=== PATIENT | male | born 1940 | race Caucasian/White ===

== ENCOUNTER 2017-03-20 08:43 | Inpatient (IN) | payer MEDICARE ==
[~2017-03-20] VITALS: Ht 170.2 cm; Wt 43.1 kg
[~2017-03-20 08:43] MED LIST: ADVAIR HFA115 MCG/21 INH; ALBUTEROL SUL5 MG/M1 IH; ALBUTEROL2.5 MG/31 INH; ALLERGY RELIEF10 M5 PO; ASPIR 8181 MG PO; ATORVASTATIN CA40 MG PO; AZITHROMYCIN250 MG PO; B-1100 MG PO; B12INJ IM; BROVANA15 MCG/2 M INH; CARAFATE 1 GM TA1 G1 PO; CEFUROXIME250 MG PO; CIPROFLOXACIN500 M1 PO; COLACE100 MG PO; DOXYCYCLINE 10100 M2 PO; DUONEB 2.5-0.5 M3 ML INH; FEOSOL325 M1 PO; FLOMAX0.4 MG PO; FOLIC ACID1 MG PO; HYDROCODONE-AP1 EAC6 PO; IBUPROFEN 400400 M2 PO; IBUPROFEN 600600 M1 PO; LEVAQUIN 500 M500 M2 PO; LEVAQUIN 750 M750 MG PO; LIPITOR40 MG PO; LOPRESSOR50 MG PO; MAPAP500 M1 PO; MELATONIN1 MG; MELATONIN1 MG PO; MIRALAX17 GM PO; MUCINEX TA600 MG/TA2 PO; MULTIVITAMINS1 EAC7 PO; NEURONTIN 300300 M1 PO; NICOTINE TRANSD21 M1; NYSTATIN 1100000 U/M SW&SWALLOW; PERCOCET PO; PREDNISONE 10 M10 M1 PO; PREDNISONE 10 M10 MG PO; PREDNISONE 20 M20 MG PO; PROMETHAZINE/C118 ML PO; PROSCAR 5MG TABL5 MG PO; PROTONIX40 M1 PO; PULMICORT0.5 MG/22 INH; REMERON15 MG PO; ROBITUSSIN DM118 ML PO; SINGULAIR 10 MG10 M1 PO; SPIRIVA INH; STIOLTO RESPIMAT4 GM IH; SYMBICORT160 MCG/4. INH; TESSALON PERLE100 MG PO; TRINATE TABLET1 TAB PO; UNICOMPLEX M TA1 TA1 PO; VENTOLIN HFA 1818 GM INH; VITAMIN B-1100 M1 PO; VITAMIN B-12500 MCG PO; VITAMIN D1000 UNI1 PO; WELLBUTRIN SR150 MG PO; ZOFRAN ODT4 MG PO; levofloxacin PO
[2017-03-20 08:57] VITALS: BP 143/78
[2017-03-20 09:03] LABS: HEMATOCRIT 34.1 % (42.0-52.0); HEMOGLOBIN 10.3 gm/dL (14.0-18.0); MCH 22.6 pg (26.0-34.0); MCHC 30.3 g/dL (28.0-37.0); MCV 74.6 fL (80.0-100.0); MPV 7.8 fl. (7.2-11.1); NUCLEATED RBCS 0 /100WBC; PLATELET COUNT* 290 thou/uL (150-400); RBC 4.57 mil/uL (4.50-6.00); RDW-CV 17.8 % (10.5-14.5); WBC 10.1 thou/uL (4.0-11.0)
[2017-03-20 09:05] LABS: ABSOLUTE BASOPHILS 0.1 thou/uL (0.0-0.2); ABSOLUTE EOSINOPHILS 0.2 thou/uL (0.0-0.7); ABSOLUTE LYMPHOCYTES 1.7 thou/uL (0.8-5.3); ABSOLUTE MONOCYTES 1.2 thou/uL (0.0-1.2); EOSINOPHILS 1.8 %; LYMPHOCYTES 16.9 %; MONOCYTES 11.5 %; POLYS 68.8 %
[2017-03-20] MEDS ORDERED: ASPIR 8181 MG PO (09:05)
[2017-03-20] MEDS ORDERED: CETIRIZINE HCL5 MG PO (09:05)
[2017-03-20] MEDS ORDERED: PROSCAR 5MG TABL5 MG PO (09:06)
[2017-03-20] MEDS ORDERED: NEURONTIN 300300 M1 PO (09:07)
[2017-03-20] MEDS ORDERED: ACETAMINOPHEN-1 EAC1 PO (09:09)
[2017-03-20] MEDS ORDERED: TESSALON PERLE100 MG PO (09:10)
[2017-03-20] MEDS ORDERED: VENTOLIN HFA 1818 GM INH (09:12)
[2017-03-20] MEDS ORDERED: ONDANSETRON HCL4 M2 PO ×2 (09:13→16:39)
[2017-03-20] MEDS ORDERED: PERCOCET PO (09:13)
[2017-03-20 09:16] LABS: ANION GAP 11 mmol/L (7-16); APTT 32.1 Seconds (25.0-31.3); BUN 32 mg/dL (7-18); CALCIUM 8.7 mg/dL (8.5-10.1); CHLORIDE 106 mmol/L (98-107); CO2 26 mmol/L (21-32); CREATININE 1.8 mg/dL (0.6-1.3); GLUCOSE 126 mg/dL (70-99); INR 1.1; POTASSIUM 4.1 mmol/L (3.5-5.1); PROTIME 10.6 Seconds (9.20-11.50); SODIUM 143 mmol/L (136-145)
[2017-03-20 09:27] LABS: ALKALINE PHOSPHATASE 61 U/L (46-116); LIPASE 49 U/L (73-393); MAGNESIUM 2.2 mg/dL (1.8-2.4); NT-PRO BRAIN NAT PEPTIDE 1195 pg/mL (<300); SGOT 14 U/L (15-37); SGPT 12 U/L (30-65); TOTAL BILIRUBIN 0.3 mg/dL (<0.1-1.0); TROPONIN-I LEVEL <0.06 ng/mL (<0.06)
[2017-03-20 09:40] LABS: INFLUENZA A ANTIGEN None Detected (None Detect); INFLUENZA B ANTIGEN None Detected (None Detect)
[2017-03-20 10:00] LABS: HYPOCHROMASIA 1+; PLATELET ESTIMATE ADEQUATE; POLYCHROMASIA 1+
[2017-03-20 10:01] LABS: ANISOCYTOSIS 1+; POIKILOCYTOSIS 1+
[2017-03-20 14:44] VITALS: BP 128/63
[2017-03-20 15:29] VITALS: BP 124/70
--- NOTE | 2017-03-20 15:48 | NUR ---
PATIENT ADMITTED TO ROOM 315 AT 1500 FROM ER. PATIENT STAND BY ASSIST TO BED FROM CART. ASSESSMENT COMPLETED. VITALS CHARTED. O2 IN PLACE AT 2L/NC, O2 SAT 98%. SALINE LOCK NOTED TO RIGHT FOREARM. SKIN INTACT. DENIES ANY PAIN. ORIENTED TO ROOM AND ENVIRONMENT. CALL LIGHT WITHIN REACH. WILL CONTINUE WITH PLAN OF CARE.
[2017-03-20] MEDS ORDERED: MAPAP500 MG PO (16:37)
[2017-03-20] MEDS ORDERED: FLOMAX0.4 MG PO (16:37)
[2017-03-20] MEDS ORDERED: VOLTAREN GEL 1100 G2 TOP (16:37)
[2017-03-20] MEDS ORDERED: COLACE100 MG PO (16:37)
--- NOTE | 2017-03-20 16:39 | EKG ---
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: [place] : 1940 Requested By: Balta Morales Order Number: [id number] MD: Michael Rebolledo Measurements Intervals [place] Rate: 103 P: 83 DE: 157 QRS: -71 QRSD: 156 T: 106 QT: 388 QTc: 508 Interpretive Statements Sinus tachycardia Left Bundle Branch Block Compared to ECG 11/22/2016 19:47:50 changes noted Electronically Signed On 03-20-2017 16:39:39 ADMINISTRATIVE TECHNICIAN by Michael Rebolledo [email or web address] <ELECTRONICALLY SIGNED> By: Michael Rebolledo MD, [facility] 03/20/17 1639 0 0 Michael Rebolledo MD, [facility] /EPI
--- NOTE | 2017-03-20 18:46 | NUR ---
PATIENT HAS BEEN A/O X 4 SINCE ADMIT. CONTINUES ON O2 AT 2L/NC. DENIES ANY PAIN. UP WITH STAND BY ASSIST. SALINE LOCK PATENT. VOIDING PER URINAL. CALL LIGHT WITHIN REACH. WILL CONTINUE WITH PLAN OF CARE.
[2017-03-21 00:16] VITALS: BP 130/58
[2017-03-21 04:42] LABS: HEMATOCRIT 28.3 % (42.0-52.0); HEMOGLOBIN 8.7 gm/dL (14.0-18.0); MCH 22.9 pg (26.0-34.0); MCHC 30.5 g/dL (28.0-37.0); MCV 74.9 fL (80.0-100.0); MPV 8.3 fl. (7.2-11.1); RBC 3.78 mil/uL (4.50-6.00); WBC 4.8 thou/uL (4.0-11.0)
[2017-03-21 04:54] LABS: CALCIUM 8.3 mg/dL (8.5-10.1); CREATININE 1.6 mg/dL (0.6-1.3); MAGNESIUM 2.2 mg/dL (1.8-2.4); POTASSIUM 4.8 mmol/L (3.5-5.1)
--- NOTE | 2017-03-21 05:53 | NUR ---
PT AWAKE ON AND OFF OVERNIGHT. RECEIVED TESSALON PERLS FOR COUGH WITH GOOD RESULT. RECEIVING PO PAIN MED FOR LEG CRAMPING AND DISCOMFORT WITH GOOD RESULT. RT TX GIVEN ORDERED. RFA SL, SOLUMEDROL GIVEN ORDERED. O2 2L NC, PT REMOVES AT TIMES, BUBBLER ADDED FOR COMFORT. LUNGS DIM WITH FAINT WHEEZES. EPISODE OF CONGESTED CHOKEY COUGHING OVERNIGHT. USING URINAL TO VOID OVERNIGHT. AM LABS DRAWN. ABLE TO USE CALL LITE AND MAKE NEEDS KNOWN. BENADRYL CREAM GIVEN FOR ITCHING SKIN CANCER.
[2017-03-21 08:10] VITALS: BP 115/59
--- NOTE | 2017-03-21 14:20 | NUR ---
SOBIA ASSBRITTANIEMENT: VISITED WITH PT IN ROOM. PT LIVES AT THE [facility] IN [place]. HE DRIVES HIS ELECTRIC SCOOTER TO THE [facility] WHICH IS ONE PARKING LOT AWAY FROM HIS APARTMENT. PT HAS A WALKER AND WC AVAILABLE FOR HIS USE. HIS FRIEND TAKES HIM TO APPOINTMENTS. [facility]
[2017-03-21 16:00] VITALS: BP 135/56
--- NOTE | 2017-03-21 19:36 | NUR ---
PATIENT HAS BEEN A/O X 4 THIS SHIFT. PATIENT MEDICATED FOR PAIN X 1 WITH PARTIAL EFFECT. PATIENT WITH NAUSEA THIS AFTERNOON, RELIEVED WITH ZOFRAN. IV ANTIBIOTICS INFUSED ORDERED. CONTINUES ON IV STEROIDS. PATIENT WEARING O2 AT 2L/NC INTERMITTENTLY. ROOM AIR SAT AT 95% WHEN NOT WEARING O2. PATIENT'S APPETITE DECREASED TODAY, STARTED ON ORAL MEGACE. BOOST GIVEN SUPPLEMENTS PER PATIENT REQUEST. PATIENT VOIDING PER URINAL. HOURLY ROUNDING COMPLETED. CALL LIGHT WITHIN REACH. WILL CONTINUE WITH PLAN OF CARE.
[2017-03-22] VITALS: BP 114/70
--- NOTE | 2017-03-22 05:58 | NUR ---
PATIENT SLEPT MOST OF THE NIGHT. IV REMAINS SALINE LOCKED. PATIENT REMAINS ON OXYGEN AT 2 LITERS PER NASAL CANNULA. PATIENT WAS GIVEN PAIN AND NAUSEA MEDS ONCE WITH GOOD RELIEF. WILL CONTINUE TO MONITOR.
[2017-03-22 09:00] VITALS: BP 112/64
[2017-03-22 16:04] VITALS: BP 104/56
--- NOTE | 2017-03-22 16:07 | NUR ---
PATIENT HAS BEEN SLEEPING MOST OF THE DAY. PRN ZOFRAN GIVEN X 1 THIS SHIFT FOR NAUSEA. SPOKE WITH DR. MCNEIL AND ORDERS FOR GET TOMORROW; PATIENT AWARE. PATIENT TOLERATING PO FLUIDS BUT EATS VERY LITTLE. PATIENT CRACKLED LUNG SOUNDS, DR. MCNEIL ROUNDING AT THAT TIME AND IV LASIX ORDERED. PATIENT IV LEAKING, MULTIPLE ATTEMPTS MADE TO RESTART. KOBI NURSE ARCHITECT MANAGER NOTED AND WILL COME UP TO START. PATIENT VOIDING PER URINAL.
[2017-03-22 20:30] VITALS: BP 115/55
--- NOTE | 2017-03-23 05:08 | NUR ---
ASSUMED CARE OF PT AT 1900 PT ALERT AND ORIENTED X4, VS AND ASSESSMENT STABLE. PT DENIED ANY COMPLAINTS AND SLEPT THROUGH THE NIGHT. WILL MONITOR
[2017-03-23 08:15] VITALS: BP 94/56
[2017-03-23 15:54] VITALS: BP 106/55
--- NOTE | 2017-03-23 16:02 | NUR ---
PATIENT HAS SLEPT OFF AND ON MOST OF SHIFT. PATIENT REFUSES TO SIT IN CHAIR OR GET IN SHOWER, STATES HE IS JUST "TOO WEAK." IV REMAINS SL, ABX INFUSED ORDERED. 02 REMAINS AT 2L. PATIENT REPOSITIONS SELF IN BED. GET THIS AM, NORMAL RESULTS. PATIENT TOLERATING REG DIET TODAY.
[2017-03-24] VITALS: BP 111/52
--- NOTE | 2017-03-24 07:27 | NUR ---
PATIENT SLEPT MOST OF THE NIGHT. IV REMAINS SALINE LOCKED. PATIENT WAS GIVEN PAIN MEDICINE ONCE THIS SHIFT. PATIENT IS POSSIBLY GOING HOME TODAY. WILL CONTINUE TO MONITOR.
[2017-03-24 08:00] VITALS: BP 123/66
--- NOTE | 2017-03-24 09:48 | NUR ---
Pt can dc back to [facility] if medically stable, phone and fax number are the same [phone], call and inform of dc. If HH is ordered, faxed orders to [facility], along with facesheet and H&P f:[phone]
[2017-03-24] MEDS ORDERED: PREDNISONE 10 M10 MG PO (09:54)
[2017-03-24] MEDS ORDERED: LEVAQUIN 250 M250 MG PO (09:55)
[2017-03-24] MEDS ORDERED: ACETAMINOPHEN-1 EAC1 PO (10:09)
[2017-03-24 10:25] VITALS: BP 123/66
--- NOTE | 2017-03-24 10:45 | NUR ---
PT STATES HE CANNOT FIND HIS WALLET. ROOM SEARCHED. LOOKED IN TRASH,LINENS AND IN EVERY ICE SKATING INSTRUCTOR ROOM. WALLET NOT FOUND. CALLED SECURITY-NO WALLET IN LOST AND FOUND OR LOCKED IN SECURITY PER LILA. VISITOR IN ROOM STATES HE IS TALKING TO PHOTONICS ENGINEER AT APT WHO IS LOOKING FOR PT'S PHONE AND WALLET. PHONE IS IN APT BUT NO WALLET FOUND. PT INSISTENT ON LE[facility]ING [facility] WALLET IS NOT YET FOUND. WILL FOLLOWUP WITH PT AFTER DC TO SEE IF WALLET FOUND
--- NOTE | 2017-03-24 11:45 | NUR ---
SPOKE TO NURSE WHO TOOK CARE OF PT YESTERDAY. SHE STATES A PHONE WAS IN THE PT'S ROOM BUT NO WALLET WAS SEEN. PHONE IS CURRENTLY AT PT'S APARTMENT AND HAS BEEN SINCE THIS AM PER HIS APT MECHANICAL MAINTENANCE ENGINEER ENRIQUE.
== END 2017-03-24 11:15 | disposition home or self-care (01) | DRG 871 ==
LOC: M.ERS 08:43 → M.3W 10:31 → M.TBA-ER 10:31 → M.3W 14:56
PROVIDERS: Family Medicine; Internal Medicine; ADMIT Internal Medicine
DX: A41.9 Sepsis, unspecified organism (principal); N17.0 Acute kidney failure with tubular necrosis; E43 Unspecified severe protein-calorie malnutrition; J96.01 Acute respiratory failure with hypoxia; J44.1 Chronic obstructive pulmonary disease with (acute) exacerbation; Z68.1 Body mass index [BMI] 19.9 or less, adult; C80.1 Malignant (primary) neoplasm, unspecified; F17.210 Nicotine dependence, cigarettes, uncomplicated; R65.20 Severe sepsis without septic shock; Z90.49 Acquired absence of other specified parts of digestive tract; Z88.0 Allergy status to penicillin; Z79.82 Long term (current) use of aspirin; Z79.51 Long term (current) use of inhaled steroids; Z79.899 Other long term (current) drug therapy

== ENCOUNTER 2017-04-13 03:17 | Inpatient (IN) | payer MEDICARE ==
[~2017-04-13] VITALS: Ht 170.2 cm; Wt 49.1 kg
[~2017-04-13 03:17] MED LIST changes: +ACETAMINOPHEN-1 EAC1 PO; +CETIRIZINE HCL5 MG PO; +LEVAQUIN 250 M250 MG PO; +MAPAP500 MG PO; +ONDANSETRON HCL4 M2 PO; +VOLTAREN GEL 1100 G2 TOP
[2017-04-13 03:19] VITALS: BP 140/73
[2017-04-13 03:45] LABS: ABSOLUTE BASOPHILS 0.1 thou/uL (0.0-0.2); ABSOLUTE EOSINOPHILS 0.2 thou/uL (0.0-0.7); ABSOLUTE LYMPHOCYTES 2.2 thou/uL (0.8-5.3); ABSOLUTE MONOCYTES 0.9 thou/uL (0.0-1.2); BASOPHILS 0.9 %; EOSINOPHILS 1.6 %; HEMATOCRIT 31.5 % (42.0-52.0); HEMOGLOBIN 9.4 gm/dL (14.0-18.0); LYMPHOCYTES 16.4 %; MCH 21.9 pg (26.0-34.0); MCHC 29.8 g/dL (28.0-37.0); MCV 73.7 fL (80.0-100.0); MONOCYTES 6.9 %; MPV 7.3 fl. (7.2-11.1); NUCLEATED RBCS 0 /100WBC; PLATELET COUNT* 413 thou/uL (150-400); POLYS 74.2 %; RBC 4.28 mil/uL (4.50-6.00); RDW-CV 17.2 % (10.5-14.5); WBC 13.5 thou/uL (4.0-11.0)
[2017-04-13] MEDS ORDERED: ACETAMINOPHEN325 M1 PO (03:57)
[2017-04-13] MEDS ORDERED: SENSI CARE TOP (03:59)
[2017-04-13 04:01] LABS: ANION GAP 9 mmol/L (7-16); BUN 23 mg/dL (7-18); CALCIUM 8.5 mg/dL (8.5-10.1); CHLORIDE 106 mmol/L (98-107); CO2 27 mmol/L (21-32); CREATININE 1.6 mg/dL (0.6-1.3); GLUCOSE 122 mg/dL (70-99); POTASSIUM 5.3 mmol/L (3.5-5.1); SODIUM 142 mmol/L (136-145)
[2017-04-13 04:02] LABS: APTT 29.6 Seconds (25.0-31.3); INR 1.1; PROTIME 10.5 Seconds (9.20-11.50)
[2017-04-13 04:11] LABS: ALBUMIN 3.1 g/dL (3.4-5.0); ALKALINE PHOSPHATASE 71 U/L (46-116); LIPASE 91 U/L (73-393); NT-PRO BRAIN NAT PEPTIDE 2185 pg/mL (<300); SGOT 10 U/L (15-37); SGPT 11 U/L (30-65); TOTAL BILIRUBIN 0.2 mg/dL (<0.1-1.0); TOTAL PROTEIN 6.8 g/dL (6.4-8.2); TROPONIN-I LEVEL <0.06 ng/mL (<0.06)
[2017-04-13 05:17] VITALS: BP 126/60
[2017-04-13 06:11] VITALS: BP 145/59
[2017-04-13 06:20] LABS: ANISOCYTOSIS 2+; HYPOCHROMASIA 1+; MICROCYTES 1+; OVALOCYTES 1+
[2017-04-13 08:00] VITALS: BP 124/54
--- NOTE | 2017-04-13 13:16 | EKG ---
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: [facility] : 1940 Requested By: Parrish Somers Order Number: [id number] MD: James Elder Measurements Intervals [place] Rate: 109 P: 75 AR: 155 QRS: -50 QRSD: 143 T: 117 QT: 383 QTc: 516 Interpretive Statements Sinus tachycardia Nonspecific IVCD with LAD Anterolateral infarct, old Compared to ECG 03/20/2017 09:01:11 Left bundle-branch block no longer present Electronically Signed On 04-13-2017 13:15:56 SHOWCASE TRIMMER by James Elder [email or web address] <ELECTRONICALLY SIGNED> By: James Elder MD, [facility] 04/13/17 1315 0331 0331 James Elder MD, [facility] /EPI
[2017-04-13 16:00] VITALS: BP 108/42
[2017-04-13 20:00] VITALS: BP 125/71
[2017-04-14] VITALS: BP 123/54
[2017-04-14 04:00] VITALS: BP 127/52
[2017-04-14 05:57] LABS: HEMATOCRIT 26.3 % (42.0-52.0); HEMOGLOBIN 7.9 gm/dL (14.0-18.0); MCV 73.1 fL (80.0-100.0); MPV 7.4 fl. (7.2-11.1); NUCLEATED RBCS 0 /100WBC; RDW-CV 17.2 % (10.5-14.5); WBC 6.2 thou/uL (4.0-11.0)
[2017-04-14 06:14] LABS: PLATELET COUNT* 290 thou/uL (150-400)
[2017-04-14 06:22] LABS: CREATININE 1.2 mg/dL (0.6-1.3); MAGNESIUM 1.9 mg/dL (1.8-2.4); PHOSPHORUS* 3.3 mg/dL (2.5-4.9); POTASSIUM 4.3 mmol/L (3.5-5.1)
[2017-04-14 07:42] LABS: ABSOLUTE LYMPHOCYTES 0.6 thou/uL (0.8-5.3); ABSOLUTE MONOCYTES 0.1 thou/uL (0.0-1.2); ABSOLUTE NEUTROPHILS 5.5 thou/uL (1.6-8.1); ATYPICAL LYMPHS 4 %; HYPOCHROMASIA 2+; OVALOCYTES 1+
[2017-04-14 07:43] LABS: PLATELET ESTIMATE ADEQUATE
[2017-04-14 08:00] VITALS: BP 128/62
[2017-04-14 12:21] VITALS: BP 116/44
[2017-04-14 16:04] VITALS: BP 127/47
[2017-04-14 20:00] VITALS: BP 140/55
[2017-04-15] VITALS: BP 116/48
[2017-04-15 04:00] VITALS: BP 134/57
[2017-04-15 05:37] LABS: HEMATOCRIT 25.3 % (42.0-52.0); HEMOGLOBIN 7.5 gm/dL (14.0-18.0); MCH 21.7 pg (26.0-34.0); MCHC 29.8 g/dL (28.0-37.0); MCV 72.8 fL (80.0-100.0); MPV 7.6 fl. (7.2-11.1); RBC 3.48 mil/uL (4.50-6.00); RDW-CV 17.2 % (10.5-14.5); WBC 18.8 thou/uL (4.0-11.0)
[2017-04-15 06:15] LABS: ALBUMIN 2.3 g/dL (3.4-5.0); CALCIUM 8.3 mg/dL (8.5-10.1); CREATININE 1.1 mg/dL (0.6-1.3); POTASSIUM 4.2 mmol/L (3.5-5.1); TOTAL BILIRUBIN 0.2 mg/dL (<0.1-1.0); TOTAL PROTEIN 5.8 g/dL (6.4-8.2)
[2017-04-15 08:00] VITALS: BP 131/62
[2017-04-15 12:12] VITALS: BP 137/60
[2017-04-15 16:16] VITALS: BP 138/64
[2017-04-15 20:00] VITALS: BP 117/57
[2017-04-16] VITALS (8 sets, daily range): BP systolic 103–176; BP diastolic 44–57
[2017-04-16 08:08] LABS: HEMATOCRIT 26.2 % (42.0-52.0); MCH 22.2 pg (26.0-34.0); MCHC 30.6 g/dL (28.0-37.0); MCV 72.6 fL (80.0-100.0); MPV 7.7 fl. (7.2-11.1); RBC 3.61 mil/uL (4.50-6.00); RDW-CV 16.9 % (10.5-14.5); WBC 7.5 thou/uL (4.0-11.0)
[2017-04-16 08:13] LABS: INR 1.1; PROTIME 11.1 Seconds (9.20-11.50)
[2017-04-16 08:16] LABS: CALCIUM 7.7 mg/dL (8.5-10.1); CREATININE 1.3 mg/dL (0.6-1.3); MAGNESIUM 1.8 mg/dL (1.8-2.4); POTASSIUM 4.4 mmol/L (3.5-5.1)
[2017-04-17 03:39] VITALS: BP 124/53
[2017-04-17 04:25] LABS: BE -1.1 mmol/L (-2 to +3); HCO3 23.6 mmol/L (22.0-26.0); PCO2 39.1 mmHg (35.0-45.0); PO2 112.5 mmHg (75.0-100.0); pH 7.399 (7.340-7.450)
[2017-04-17 07:55] VITALS: BP 115/54
--- NOTE | 2017-04-17 08:03 | CON ---
[address] [address] CONSULTATION Name: CELESTE STUART Room: [place] [address] ADM IN M.R.#: [id number] Admission: 04/13/17 Attend Phys: Shayne Arredondo Discharge: Date of : 38 Report #: [id number] THIS REPORT FOR: //name// CC: Deed[address] DATE OF SERVICE: 04/16/2017 CHIEF COMPLAINT: COPD and bilateral pulmonary nodules. HISTORY OF PRESENT ILLNESS: The patient is a 77-year-old male who is a smoker. He is down to about half pack of cigarettes per day. He had been a heavy smoker up until a year ago consuming one pack per day for 60+ years. The patient was admitted to the hospital after presenting to the Emergency Room because of increasing shortness of breath. He was doing relatively well on Sunday, but on the day of admission, he noticed more short windedness, was unable to improve despite using his oxygen therapy and using nebulized aerosol treatments. At the place of his residence, the staff called an ambulance. The patient resides at the [facility]. He has a productive cough. He is not bringing up any blood. He denies fever, chills, chest or abdominal pain. In the past, the patient has elected to undergo evaluation by the medical staff at the [facility]. Unfortunately, he has been unable to get an appointment. He states that he has been trying for the last 3 months, but not been able to secure an appointment time. He had been seen and evaluated at this facility in the past. He was seen back in 10/[address] Mendez at which time similar findings were noted on CAT scan that were present on today's scan. Discussion with the patient at that time was that he was interested in pursuing, but would undertake this at the [place]. PAST MEDICAL HISTORY: Significant for chronic kidney disease, bronchitis, COPD, pulmonary nodules, hypertension, hyperlipidemia and tobacco abuse. ALLERGIES: PENICILLIN. In addition to medical problems, he has a history of coronary artery disease. REVIEW OF SYSTEMS: System review negative other than what is outlined above. SOCIAL HISTORY: He is a smoker as outlined above. His 6 years ago. He has four children, but is not aware of where they are currently living. He has no contact with his children. He lives in an assisted living center with about 11 or 12 [place] [address] CONSULTATION Name: CELESTE STUART Room: [address] IN [facility]#: [id number] Admission: 04/13/17 Attend Phys: Shayne Arredondo Discharge: Date of : 38 Report #: [id number] CURRENT MEDICATIONS: Solu-Medrol, guaifenesin, Levaquin, finasteride, loratadine, aspirin, Protonix, gabapentin, melatonin, montelukast and DuoNeb aerosol treatments. PHYSICAL EXAMINATION: VITAL SIGNS: Blood pressure 125/44, pulse rate 84 and regular, respiratory rate 16 and nonlabored and temperature 98 degrees. GENERAL APPEARANCE: He is awake and alert. He is oriented. HEAD: Atraumatic. EYES: Pupils are round, equal and reactive. No scleral icterus. ORAL CAVITY: Moist. NECK: No adenopathy or JVD. CHEST: Reveals coarse breath sounds and scattered rhonchi. Few end-expiratory wheezes. CARDIOVASCULAR: Regular rhythm. ABDOMEN: Soft. No organomegaly and no tenderness. EXTREMITIES: Negative for edema. No evidence of clubbing. SKIN: He has abnormal looking skin with some hyperemic changes on his upper extremities. Skin surface appears slightly irregular and thick especially on his arms. There is no rash effect. Pulses are equal bilaterally. NEUROLOGIC: Moves all fours. No lateralizing signs. MEDICAL IMAGING STUDIES: Most recent CT exam of the chest is abnormal demonstrating a spiculated mass in the right costophrenic angle since the prior study. It is measuring 3.3 x 1.9 x 1.2 cm in diameter. There is a spiculated mass in the right mid lung, which has been interpreted as being stable when compared to the prior study. Small to moderate bilateral effusions and diffuse emphysematous changes. LABORATORY DATA: Hemoglobin and hematocrit of 8 and 26 with a white count of 7600 and platelet count 278,000. Today, his electrolytes reveal sodium of 141, potassium 4.4, chloride 108, CO2 of 25, BUN of 30, creatinine 1.3 and EGFR 53. ASSESSMENT: 1. Chronic obstructive airways disease with exacerbation. 2. Acute on chronic respiratory failure. 3. Pulmonary masses with development of a new lesion in the right lower lung field. 4. Bilateral effusions. RECOMMENDATION: We will ask Interventional Radiology to assess the patient and see if a CT-guided biopsy would be warranted in this patient. The lesion almost abuts the pleural space. There is adjacent pleural fluid. At the time, fluid could be removed as well to be evaluated for culture, sensitivity and cytologic [address] [address] CONSULTATION Name: CELESTE STUART Renetta Room: [address] IN M.R.#: [id number] Admission: 04/13/17 Attend Phys: Shayne Arredondo Discharge: Date of : 38 Report #: [id number] evaluation. An arterial blood gas will be obtained. Continue with bronchodilator therapy. We will increase his steroid dose at this time as well. <ELECTRONICALLY SIGNED> By: Ronnie Benjamin MD 04/17/17 0803 1751 [id number] Chaparro MD /jassi
[2017-04-17 11:05] VITALS: BP 109/56
[2017-04-17 17:02] VITALS: BP 135/52
[2017-04-17 20:00] VITALS: BP 139/83
[2017-04-18] VITALS: BP 132/53
[2017-04-18 04:00] VITALS: BP 130/52
[2017-04-18 07:52] VITALS: BP 119/44
[2017-04-18] MEDS ORDERED: DUONEB 2.5-0.5 M3 ML INH (10:42)
[2017-04-18] MEDS ORDERED: LEVAQUIN 250 M250 MG PO (10:43)
[2017-04-18] MEDS ORDERED: MIRALAX17 GM PO (10:44)
[2017-04-18] MEDS ORDERED: PREDNISONE 10 M10 MG PO (10:45)
[2017-04-18 12:00] VITALS: BP 132/62
== END 2017-04-18 14:02 | DRG 177 ==
LOC: M.ERS 03:17 → M.TBA-ER 04:42 → M.2W 04:42
PROVIDERS: Emergency Medicine Emergency Medical Services; Family Medicine; Internal Medicine; Internal Medicine Pulmonary Disease; ADMIT Internal Medicine
PROC: 5A09357 Assistance with Respiratory Ventilation, Less than 24 Consecutive Hours, Continuous Positive Airway Pressure (ICD-10-PCS; principal; 2017-04-13)
PROC: 5A09357 Assistance with Respiratory Ventilation, Less than 24 Consecutive Hours, Continuous Positive Airway Pressure (ICD-10-PCS; 2017-04-15)
DX: J15.6 Pneumonia due to other Gram-negative bacteria (principal); J96.21 Acute and chronic respiratory failure with hypoxia; E43 Unspecified severe protein-calorie malnutrition; J44.1 Chronic obstructive pulmonary disease with (acute) exacerbation; J44.0 Chronic obstructive pulmonary disease with (acute) lower respiratory infection; R65.10 Systemic inflammatory response syndrome (SIRS) of non-infectious origin without acute organ dysfunction; Z68.1 Body mass index [BMI] 19.9 or less, adult; G62.9 Polyneuropathy, unspecified; N18.9 Chronic kidney disease, unspecified; E78.5 Hyperlipidemia, unspecified; I12.9 Hypertensive chronic kidney disease with stage 1 through stage 4 chronic kidney disease, or unspecified chronic kidney disease; D64.9 Anemia, unspecified; F10.21 Alcohol dependence, in remission; R91.8 Other nonspecific abnormal finding of lung field; F17.210 Nicotine dependence, cigarettes, uncomplicated; I25.2 Old myocardial infarction; Z90.49 Acquired absence of other specified parts of digestive tract; Z85.828 Personal history of other malignant neoplasm of skin; Z79.82 Long term (current) use of aspirin; Z79.899 Other long term (current) drug therapy; Z88.0 Allergy status to penicillin; Z82.49 Family history of ischemic heart disease and other diseases of the circulatory system; Z80.8 Family history of malignant neoplasm of other organs or systems; Z71.6 Tobacco abuse counseling

== ENCOUNTER 2017-05-21 00:02 | Inpatient (IN) | payer MEDICARE, MEDICAID ==
[2017-05-21] VITALS (7 sets, daily range): BP systolic 89–158; BP diastolic 51–77
[~2017-05-21] VITALS: Ht 170.2 cm; Wt 53.5 kg
[~2017-05-21 00:02] MED LIST changes: +ACETAMINOPHEN325 M1 PO; +SENSI CARE TOP
[2017-05-21 01:03] LABS: ABSOLUTE BASOPHILS 0.1 thou/uL (0.0-0.2); ABSOLUTE EOSINOPHILS 0.1 thou/uL (0.0-0.7); ABSOLUTE LYMPHOCYTES 1.9 thou/uL (0.8-5.3); ABSOLUTE MONOCYTES 0.9 thou/uL (0.0-1.2); ABSOLUTE NEUTROPHILS 6.9 thou/uL (1.6-8.1); BASOPHILS 0.8 %; EOSINOPHILS 1.3 %; HEMATOCRIT 27.4 % (42.0-52.0); HEMOGLOBIN 8.3 gm/dL (14.0-18.0); MCH 22.1 pg (26.0-34.0); MCHC 30.1 g/dL (28.0-37.0); MCV 73.6 fL (80.0-100.0); MONOCYTES 8.8 %; NUCLEATED RBCS 0 /100WBC; PLATELET COUNT* 416 thou/uL (150-400); POLYS 70.1 %; RBC 3.73 mil/uL (4.50-6.00); RDW-CV 20.2 % (10.5-14.5); WBC 9.9 thou/uL (4.0-11.0)
[2017-05-21 01:14] LABS: CALCIUM 8.8 mg/dL (8.5-10.1); CREATININE 1.6 mg/dL (0.6-1.3); POTASSIUM 5.3 mmol/L (3.5-5.1)
[2017-05-21 01:19] LABS: ALBUMIN 2.8 g/dL (3.4-5.0); TOTAL BILIRUBIN 0.3 mg/dL (<0.1-1.0); TOTAL PROTEIN 6.4 g/dL (6.4-8.2)
--- NOTE | 2017-05-21 02:14 | NUR ---
NURSE REPORT GIVEN TO [facility]CO FOR ROOM 228.
[2017-05-21 02:29] LABS: ESR (SEDRATE) 37 mm/hr (0-20)
--- NOTE | 2017-05-21 04:00 | NUR ---
PT TO UNIT AT 0230. RESTING COMFORATABLY. REPORTS OF PAIN IN R FOOT, WOUND NOTED. PICTURES TAKEN. PAIN RELIEVED BY IV PAIN MEDICATION. IVF INFUSING WITHOUT DIFFICULTY. PATIENT HAD EPISODE OF NAUSEA REQUIRING ZOFRAN. SAFETY PRECAUTIONS IN PLACE. VSS. WILL CONT TO MONITOR.
[2017-05-21 05:03] LABS: ANISOCYTOSIS 1+; HYPOCHROMASIA 2+; POIKILOCYTOSIS 1+
[2017-05-21 05:04] LABS: MACROCYTES Occasional; MICROCYTES 1+; PLATELET ESTIMATE INCREASED; SCHISTOCYTES 1+; TARGET CELLS Occasional; TEARDROPS Occasional
[2017-05-21 06:11] LABS: URINE BILIRUBIN NEGATIVE (Negative); URINE BLOOD NEGATIVE (Negative); URINE CLARITY CLEAR; URINE COLOR YELLOW; URINE GLUCOSE-RANDOM NEGATIVE (Negative); URINE KETONES NEGATIVE (Negative); URINE LEUKOCYTES-REFLEX NEGATIVE (Negative); URINE NITRITE-REFLEX NEGATIVE (Negative); URINE PROTEIN NEGATIVE (Negative); URINE SPECIFIC GRAVITY 1.015 (1.005-1.030); URINE UROBILINOGEN 0.2 E.U./dl (0.2-1.0)
[2017-05-21 07:35] LABS: ALBUMIN 2.5 g/dL (3.4-5.0); CALCIUM 8.2 mg/dL (8.5-10.1); CREATININE 1.5 mg/dL (0.6-1.3); HEMATOCRIT 26.1 % (42.0-52.0); HEMOGLOBIN 7.9 gm/dL (14.0-18.0); MCH 22.3 pg (26.0-34.0); MCV 74.2 fL (80.0-100.0); MPV 7.2 fl. (7.2-11.1); RBC 3.52 mil/uL (4.50-6.00); RDW-CV 19.7 % (10.5-14.5); TOTAL BILIRUBIN 0.3 mg/dL (<0.1-1.0); TOTAL PROTEIN 6.1 g/dL (6.4-8.2); WBC 9.8 thou/uL (4.0-11.0)
[2017-05-21 07:37] LABS: POTASSIUM 4.2 mmol/L (3.5-5.1)
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
--- NOTE | 2017-05-21 15:36 | NUR ---
MET WITH PT TO DISCUSS HOME SITUATION/DC PLANNING. PT LIVES AT THE [facility] IN [place]. SPOKE WITH ENRIQUE THERE, SHE CONFIRMED THAT PT HAS HH WITH [facility] FOR THERAPY. ENRIQUE ALSO STATED PT HAS SORE ON HIS FOOT THAT SHE DISCOVERED, HE WAS ADMITTED WITH CELLULITIS. PT USES POWER SCOOTER AND DOES GO OUTSIDE THE FACILITY IN IT. HE HS LIFEILNG, HOME O2 AND NEBULIZER AND WALKER. HE HAS HAD SNF STAYS AT [facility] MOST RECENTLY WELL AT [facility]. FLORY IS [facility] AND [facility]. WILL FOLLOW
--- NOTE | 2017-05-21 18:10 | EKG ---
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
--- NOTE | 2017-05-21 19:00 | NUR ---
RECEIVED REPORT. ASSUMED CARE OF PT AT 0730. PT A&OX4. VSS. O2 SAT 97% ON 2L PER NC. ADVANCED QUALITY ENGINEER IN PLACE TRACING SR WITH BBB. AM ASSESSMENT AND VITALS COMPLETED CHARTED. IV SALINE LOCKED. PT HAS REPORTED SEVERE PAIN IN LEFT LEG THIS SHIFT. IV AND TOPICAL PAIN MEDICATIONS GIVEN WITH PARTIAL RELIEF; THIS EVENING PT HAS RECEIVED MORE RELIEF FROM MEDICATION AND WAS ABLE TO REST. PT SHOWING POOR APPETITE THIS SHIFT. ENCOURAGED TO EAT MORE, PT REFUSED STATEING "I'M JUST NOT HUNGARY HONEY". PT SEEN BY WOUND CARE THIS SHIFT AND VASULAR. WOUND TO RIGHT FOOT NOTED; WOUND CARE PERFORMED BY WOUND NURSE. PT COMPLETED MANY TESTS TODAY, SEE RESULTS. PT ABLE TO SIT IN BEDSIDE CHAIR EARLY THIS AFTERNOON FOR A TIME. PT REPOSITIONED IN THE BED FOR COMFORT. CALL LIGHT IS WITHIN REACH, FALL PRECAUTIONS ARE IN PLACE. HOURLY ROUNDING PERFORMED.
[2017-05-22] VITALS (17 sets, daily range): BP systolic 82–147; BP diastolic 34–89
[2017-05-22 03:11] LABS: GLYCOHEMOGLOBIN (HGB A1C) 4.8 % (4.8-5.6)
[2017-05-22 05:53] LABS: HEMATOCRIT 25.7 % (42.0-52.0); HEMOGLOBIN 7.6 gm/dL (14.0-18.0); MCHC 29.7 g/dL (28.0-37.0); MCV 74.1 fL (80.0-100.0); MPV 7.4 fl. (7.2-11.1); RBC 3.46 mil/uL (4.50-6.00); RDW-CV 19.6 % (10.5-14.5); WBC 11.2 thou/uL (4.0-11.0)
--- NOTE | 2017-05-22 06:30 | NUR ---
PATIENT PARTIALLY PROGRESSING TOWARDS GOALS: PATIENT A&OX4, HOWEVER, FORGETFUL AND VERY LETHARGIC THROUGHOUT SHIFT. PATIENT AROUSABLE TO VERBAL STIMULI. PAIN MANAGED WITH PRN MEDICATION AND RELAXATION TECHNIQUES/REPOSITIONING. PATIENT INCONTINENT AT TIMES THROUGHOUT SHIFT. VEDA CARE PROVIDED. PATIENT REMAINS ON 2L O2 NC WITH SATS >92%. PATIENT HAD A SLIGHTLY LOW BP READING THIS AM WHEN PATIENT WAS IN A DEEP SLEEP, 108/55. HOURLY ROUNDING OBSERVED. CALL LIGHT WITHIN REACH.
[2017-05-22 07:16] LABS: CALCIUM 8.2 mg/dL (8.5-10.1); CREATININE 1.4 mg/dL (0.6-1.3); POTASSIUM 4.2 mmol/L (3.5-5.1)
[2017-05-22 09:43] LABS: INR 1.1; PROTIME 10.7 Seconds (9.20-11.50)
--- NOTE | 2017-05-22 11:59 | NUR ---
CONTINUE TO FOLLOW. CALLED AND UPDATED PT'S [facility] ON PLAN. HE IS OUT OF TOWN UNTIL SUNDAY BUT IS AVAILABLE BY PHONE. [phone]
--- NOTE | 2017-05-22 12:37 | NUR ---
ASSUMED CARE OF PATIENT THIS AM AT 0730. PATIENT IS DROWSY, ORIENTED X 3 WHEN HE WAS AWAKENED. HE C/O SEVERE PAIN THIS AM IN HIS FEET. PATIENT HAS ABNORMAL PERIPHERAL PULSES. SEE FLOW. PATIENT MEDICATED FOR PAIN X 2. PATIENT INSTRUCTED ON PROCEDURES AND MEDICATIONS. HE HAS BEEN KEPT NPO FOR PROCEDURES. IV HEPARIN THERAPY STARTED. NEW IV ACCESS STARTED. PATIENT ASSISTED WITH ADLS THROUGHOUT THE DAY. TELE SHOWS SR TO ST WITH BBB. WILL CONTINUE PLAN OF CARE.
[2017-05-22 17:25] LABS: CALCIUM 8.3 mg/dL (8.5-10.1); CREATININE 1.4 mg/dL (0.6-1.3); MAGNESIUM 1.9 mg/dL (1.8-2.4); POTASSIUM 4.7 mmol/L (3.5-5.1)
[2017-05-23 04:00] VITALS: BP 93/55
--- NOTE | 2017-05-23 04:40 | NUR ---
PATIENT REMAINS STABLE THIS SHIFT WITH NO CHANGES IN TOUR CONSULTANT, SR/ST BBB. ASSESSMENT AND VITALS COMPLETED CHARTED, VSS. PATIENT A&OX3-4, PATIENT LETHARGIC BUT EASILY AROUSABLE. PATIENT REMAINS ON 2L O2 NC WITH SATS >92%. PATIENT HAD C/O PAIN IN LEFT LEG, RELIEVED WITH ONE TIME DOSE OF MORPHINE. PATIENT RESTING COMFORTABLY SINCE. REPOSITIONING COMPLETED Q2H. PATIENT HAD A COUPLE EPISODES OF URINARY INCONTINCE. HOURLY ROUNDING OSBERVED. CALL LIGHT WITHIN REACH
[2017-05-23 06:32] LABS: CALCIUM 8.1 mg/dL (8.5-10.1); CREATININE 1.5 mg/dL (0.6-1.3); POTASSIUM 5.1 mmol/L (3.5-5.1)
[2017-05-23 06:46] LABS: HEMATOCRIT 23.6 % (42.0-52.0); MCHC 29.1 g/dL (28.0-37.0); MCV 75.7 fL (80.0-100.0); MPV 6.9 fl. (7.2-11.1); RBC 3.12 mil/uL (4.50-6.00); RDW-CV 20.5 % (10.5-14.5); WBC 13.5 thou/uL (4.0-11.0)
[2017-05-23 06:51] LABS: HEMOGLOBIN 6.9 gm/dL (14.0-18.0)
[2017-05-23 09:00] VITALS: BP 123/62
[2017-05-23 12:31] VITALS: BP 148/59
[2017-05-23 13:42] VITALS: BP 114/56; BP 116/59; BP 117/50; BP 123/51; BP 131/55
--- NOTE | 2017-05-23 16:00 | NUR ---
PT LETHARGIC AND REQUIRING ASSISTANCE WITH MEALS. PT HAS POOR APPETITE. ENCOURAGED SNACKS IN BETWEEN MEALS. PACKED RBC'S INFUSING ORDERED. FREQUENT REPOSITIONING, HEELS FLOATED PT ALLOWS. EDUCATION R/T MAINTAINING SKIN INTEGRITY GIVEN. NEEDED ITEMS AND CALL LIGHT WITHIN REACH.
[2017-05-23 18:00] VITALS: BP 125/52
[2017-05-23 20:00] VITALS: BP 117/70
[2017-05-23 20:22] LABS: HEMATOCRIT 29.6 % (42.0-52.0)
[2017-05-23 20:23] LABS: HEMOGLOBIN 9.1 gm/dL (14.0-18.0)
[2017-05-24] VITALS: BP 146/65
[2017-05-24 04:00] VITALS: BP 105/57
--- NOTE | 2017-05-24 04:58 | NUR ---
PATIENT REMAINS STABLE THROUGHOUT SHIFT. PATIENT REMAINS 3L O2 NC, SATS WNL. ON PATIENT HAS PERIODS OF CONFUSION BUT EASILY REDIRECTED AND ORIENTED TO SITUATION. PATIENT GOT IRRITABLE AND FRUSTRATED DUE TO THE FACT THAT STAFF COULD NOT GAIN IV ACCESS DESPITE MULTIPLE ATTEMPTS. PATIENT LOST IV ACCESS AT THE BEGINNING OF THE SHIFT AND IS REFUSING ANY MORE ATTEMPTS. PHYSICIAN NOTIFIED, PATIENT IS SUPPOSED TO BE RECIEVING IVF AND ANTIBIOTICS. ORDERS RECIEVED FOR PICC LINE PLACEMENT. PATIENT REFUSED LAB DRAWS DUE TO "BEING STUCK TOO MANY TIMES." HOURLY ROUNDING OBSERVED. CALL LIGHT WITHIN REACH
--- NOTE | 2017-05-24 06:39 | NUR ---
THIS RN CONCERNED ABOUT PATIENT ASPIRATING. UPON GIVING PATIENT MEDS THIS SHIFT, PATIENT POCKETING PILLS AND WATER IN MOUTH. WHEN PATIENT DID SWALLOW, PATIENT COUGHED RIGHT AFTER. PILLS HELD THIS AM AND PATIENT MADE NPO UNTIL ST EVALUATES SWALLOWING.
[2017-05-24 08:14] VITALS: BP 131/78
[2017-05-24 12:15] VITALS: BP 127/63
--- NOTE | 2017-05-24 14:08 | NUR ---
Nutrition: follow up on diet order and supplement order 05/25/17.
--- NOTE | 2017-05-24 14:12 | NUR ---
CONTINUE TO FOLLOW, PT MORE ALERT AND ORIENTED TODAY. STATES FEELING BETTER AND PAIN IS LESS. PT STATES HE PLANS TO RETURN TO THE [facility] [place]. WILL FOLLOW AND SEE HOW HE DOES WITH THERAPY. PT USES ELECTRIC SCOOTER AT FACILITY MOST OF THE TIME. WILL NEED TO BE ABLE TO TRSF SELF AND GET TO SAFETY IF NEEDED. WILL FOLLOW
--- NOTE | 2017-05-24 17:45 | NUR ---
PT ORIENTED X 4 WITH FORGETFULNESS. BEDSIDE SWALLOW TODAY, PT NEEDING NECTAR THICK LIQUIDS FOR SAFETY IN SWALLOWING. PT ACCEPTING OF [facility]. PROGRESSING TOWARD GOALS. NEEDED ITEMS AND CALL LIGHT WITHIN REACH
[2017-05-24 20:06] VITALS: BP 141/72
[2017-05-25] VITALS: BP 128/68
[2017-05-25 04:00] VITALS: BP 140/86
[2017-05-25 08:00] VITALS: BP 129/69
--- NOTE | 2017-05-25 08:22 | NUR ---
Pt reports resting well overnight. Pt got up at least twice overnight to void without calling for assistance, set off bed alarm each time and was assisted. Pedal pulses palpable bilat. VSS. Will continue to monitor.
--- NOTE | 2017-05-25 10:00 | NUR ---
RECEIVED REPORT. ASSUMED CARE OF PT AT 0730. VSS. O2 SAT 97% ON RA, TITRATED OFF 1L NC. PT A&O X4. AM ASSESSMENT AND VITALS COMPLETED CHARTED. PAPER GLUING OPERATOR IN PLACE TRACING ST. IV PATENT AND INFUSING. PT DENIES PAIN OR DISCOMFORT AT THIS TIME. PT DIET CHANGED TO MECHANICAL ALT/CHOPPED AND NECTAR THICK FLUIDS. PT INFORMED OF PLAN OF CARE. PT COMMUNCIATES UNDERSTANDING. WOUNDS TO BILATERAL FEET NOTED. HEELS OFFLOADED WITH PILLOW. PT BEING REPOSITIONED IN THE BED Q2HRS FOR COMFORT; PT REFUSING TURNS AT TIMES; EDUCATED ON IMPORTANCE OF TURNS FOR SKIN INTEGRITY, PT STILL REFUSES. CALL LIGHT IS WITHIN REACH. HIGH FALL RISK PRECAUTIONS IN PLACE. WILL CONTINUE TO MONITOR/
--- NOTE | 2017-05-25 11:50 | NUR ---
MET WITH PT WITH DR RODGERS, DISCUSSED DC PLAN AND RECOMMENDATION FOR SNF. PT AGREEABLE. NURSE CONTACTING ID TO DISCUSS ANTIBX PLAN, POSSIBLE NEED FOR IV ANTIBX. DISCUSSED SNF WITH PT, HAS BEEN TO [facility]. SPOKE WITH [facility], THEY DO NOT HAVE AVAILABILITY UNTIL 05/31. ED/FELIPE STATED THEY DO NOT HAVE APPROPRIATE BED EITHER. PT WANTS TO STAY CLOSE TO THE [facility] WHERE HE LIVES AND PLANS TO RETURN. DISCUSSED OTHER OPTIONS, WANTS TO CONSIDER [facility]. CALLED AND FAXED REFERRAL TO [facility]. AWAIT CALL BACK
--- NOTE | 2017-05-25 13:29 | NUR ---
CONSULTED TO PLACE PICC FOR DIFFICULT IV STICK WITH NEED FOR LAB AND CONCRETE PRODUCTS DISPATCHER ATB THERAPY. SPOKE WITH PT REGUARDING RISK AND BENIFIT OF PICC. STATED HE HAS HAD PICC IN THE PAST AND WORKED AN RN. ORDER AND CONSENT NOTED. RIFGHT UPPER ARM ASSESSED WITH ULTRASOUND, BASILIC VEIN IDENTIFIED AND NOTED TO BE WIDLEY PATENT. A SINGLE LUMAN POWER PICC PLACED TO RIGHT BASILIC USING STERILE TECHNIQUE INCLUDING MAX BARRIER PRECAUTIONS. LINE TRIMMED TO 45CM AND ADVANCED WITH EASE TO 0CM EXTERNAL. LINE CLEARED WITH SHERLOCK 3CG, SECURED AND RELEASED FOR IMMEDIATE USE. PRIMARY RN NOTIFIED OF LINE AND OK FOR USE.
[2017-05-25 14:06] VITALS: BP 147/92
[2017-05-25 14:14] LABS: ABSOLUTE BASOPHILS 0.1 thou/uL (0.0-0.2); ABSOLUTE EOSINOPHILS 0.1 thou/uL (0.0-0.7); ABSOLUTE LYMPHOCYTES 1.2 thou/uL (0.8-5.3); ABSOLUTE MONOCYTES 0.9 thou/uL (0.0-1.2); ABSOLUTE NEUTROPHILS 6.8 thou/uL (1.6-8.1); BASOPHILS 0.6 %; EOSINOPHILS 1.1 %; HEMATOCRIT 25.7 % (42.0-52.0); HEMOGLOBIN 8.1 gm/dL (14.0-18.0); LYMPHOCYTES 13.3 %; MCH 23.6 pg (26.0-34.0); MCHC 31.3 g/dL (28.0-37.0); MCV 75.6 fL (80.0-100.0); MONOCYTES 9.5 %; MPV 7.3 fl. (7.2-11.1); NUCLEATED RBCS 0 /100WBC; PLATELET COUNT* 275 thou/uL (150-400); POLYS 75.5 %; RDW-CV 19.9 % (10.5-14.5); WBC 9.1 thou/uL (4.0-11.0)
[2017-05-25 14:24] LABS: ALBUMIN 1.9 g/dL (3.4-5.0); CALCIUM 7.8 mg/dL (8.5-10.1); POTASSIUM 3.9 mmol/L (3.5-5.1); TOTAL BILIRUBIN 0.3 mg/dL (<0.1-1.0); TOTAL PROTEIN 4.9 g/dL (6.4-8.2)
--- NOTE | 2017-05-25 16:33 | NUR ---
TRANSFER ORDERS RECEIVED. REPORT CALLED TO ENRIQUE. PT TRANSFERED TO ROOM 314. PT AGREEABLE TO TRANSFER. ---- PICC LINE PLACED TO RIGHT UPPER EXTREMITY EARLIER TODAY. BLOOD OBTAINED AND SENT TO LAB. PT EATING AND DRINKING WITHOUT ISSUE. VSS. HOURLY ROUNDING PERFORMED.
--- NOTE | 2017-05-25 16:36 | NUR ---
ASSUMED CARE OF PATIENT AFTER TRANSFER FROM TELEMETRY AT 1615. ALERT AND ORIENTED. VITALS REMAIN STABLE. FLUIDS INFUSING ORDERED. PATIENT IS RESTING COMFORTABLY IN BED AT THIS TIME WITH NO COMPLAINTS OF PAIN OR NAUSEA. CALL LIGHT IS WITHIN REACH. NURSING WILL CONTINUE TO MONITOR.
[2017-05-25 20:30] VITALS: BP 127/76
--- NOTE | 2017-05-26 06:15 | NUR ---
PT SLEPT AT INTERVALS DURING THE NIGHT, URINAL TO VOID, IV FLUIDS INFUSED, PRN PAIN MEDS GIVEN, CALL LIGHT IN REACH, BED ALARM ON FOR SAFETY, WILL CONTINUE TO MONITOR
[2017-05-26 08:10] VITALS: BP 139/86
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
--- NOTE | 2017-05-26 14:21 | OP ---
[address] [address] OPERATIVE REPORT Name: SADECELESTE Renetta Room: [address] IN M.R.#: [id number] Admission: 05/21/17 Attend Phys: Simi Barajas MD Discharge: Date of : 39 Report #: [id number] THIS REPORT FOR: //name// CC: MARIAH physician/PCP Simi Barajas DATE OF SERVICE: 05/22/2017 PREOPERATIVE DIAGNOSIS: Acute on chronic ischemia, left lower extremity. POSTOPERATIVE DIAGNOSIS: Acute on chronic ischemia, left lower extremity. PROCEDURE: 1. Aortogram runoff, left lower extremity. 2. Third order vessel cannulation, left lower extremity. 3. Angioplasty, left SFA. 4. Angioplasty and stent, left common and external iliac arteries. 5. Ultrasound guidance for arterial access with image saved right common femoral artery. FINDINGS: On angiogram, aorta and right iliac system is widely patent. There is previously placed bilateral common iliac artery stents. The left iliac artery is occluded just after its takeoff, it reconstitutes at the left common femoral artery and the left profunda femoris. The left superficial femoral artery appears to be acutely thrombosed. Distally, there is a 2-vessel runoff through the perineal and the anterior tibial arteries. Posterior tibial is occluded along its length. This appears to be a combination of acute thrombosis on chronic disease. SURGEON: Dr. Concepcion. MACHINERY DISMANTLER: LUANN Sanz. COMPLICATIONS: None. ESTIMATED BLOOD LOSS: 10 mL. SPECIMEN: None. ANESTHESIA: Local sedation. INDICATIONS: The patient is a very pleasant 77-year-old white male who presented with bilateral foot pain. His left foot acutely became worse today. There is evidence of worsening acute on chronic ischemia. I planned to take him for diagnostic angiogram. We are unable to obtain a CT angiogram due to patient's noncompliance. He was in too much pain [place] [address] OPERATIVE REPORT Name: CELESTE STUART Renetta Room: [address]#: [id number] Admission: 05/21/17 Attend Phys: Simi Barajas MD Discharge: Date of : 39 Report #: [id number] consent was obtained from the patient with risks including, but not limited to bleeding, infection, need for further surgery, pain, , heart attack, stroke, amputation. He has an increased risk for re-thrombosis as he cannot be anticoagulated or on antiplatelet therapy long-term as he has multiple AVMs I believe. The patient understood these risks and he was agreeable to proceed. DESCRIPTION OF PROCEDURE: The patient was taken to the angio suite and placed in supine position. After adequate sedation was initiated, timeout was performed. The patient's right groin was prepped and draped in usual sterile fashion. I infused 10 mL of 1% lidocaine. Under ultrasound guidance with an image saved, I cannulated the right common femoral artery without difficulty. I used Seldinger technique to exchange out for 6-Arabic sheath. I placed an Omniflush catheter into the abdominal aorta and performed aortogram. I selectively cannulated the left iliac system. With some difficulty, I got up and over with the sheath. A shot another angiogram from the common femoral artery and identified the distal runoff. I angioplastied the iliac arteries on the left with a 6-mm balloon, this created a track and I was able to place a 10 x 80 and a 10 x 40 LifeStent realigning the entire left common and external iliac arteries. mm balloon, I had excellent result with much improved flow. I did not embolize any of the disease. I now was able to see a trickle of flow through the SFA and now that there was pressurized blood flow in the common femoral. I was able to subsequently cannulate the SFA. I crossed the occlusion SFA, this appeared to be more acute thrombus than anything else. I carefully angioplastied this with a 4 mm balloon. I had excellent result with really resolution of the thrombosis. I did not need to stent anything. I did shoot distal runoff below the knee. Please see findings above. I removed my sheath, placed a 6-Arabic Angio-Seal without complication. There was no bleeding, hematoma. The patient tolerated well and his foot was pink and warm at completion of procedure. His toes do remain a bit dusky, I am optimistic they will pink up in the coming hours, but this likely represents some distal thrombus and he may end up having some tissue loss long-term. We will plan to keep him on heparin for now, but we will need to transition off in the coming days due to his AVM and increased risk of bleeding. <ELECTRONICALLY SIGNED> By: Wilder Brooks DO 05/26/17 1421 1620 [id number] Concepcion MD /jassi
[2017-05-26 16:00] VITALS: BP 126/63
--- NOTE | 2017-05-26 19:51 | NUR ---
PATIENT RESTING IN BED. PATIENT HAS HAD COMPLAINTS OF PAIN TO BILATERAL FEET, TREATED ADEQUATLEY WITH HYDROCODONE. BILATERAL FEET ARE WARM TO TOUCH. WOUNDS TO BILATERAL FEET/TOES TREATED WITH BETADINE ORDERED. PATIENT HAS GOOD APPETITE. PATIENT DENIES ANY NEEDS AT THIS TIME. CALL LIGHT WITHIN REACH. WILL CONTINUE TO MONITOR.
[2017-05-26 20:00] VITALS: BP 105/62
--- NOTE | 2017-05-27 05:31 | NUR ---
PT SLEPT AT INTERVALS DURING THE NIGHT, VOIDED PER URINAL, IV FLUIDS INFUSED, PRN PAIN MEDS AT HS, PLEASANT, CALL LIGHT IN REACH, REFUSES TURNS, CALL LIGHT IN REACH, BED ALARM ON FOR SAFETY, WILL CONTINUE TO MONITOR
[2017-05-27 06:36] LABS: HEMATOCRIT 26.2 % (42.0-52.0); HEMOGLOBIN 8.1 gm/dL (14.0-18.0); MCH 23.4 pg (26.0-34.0); MCHC 30.7 g/dL (28.0-37.0); MCV 76.3 fL (80.0-100.0); MPV 7.4 fl. (7.2-11.1); RBC 3.44 mil/uL (4.50-6.00); RDW-CV 20.3 % (10.5-14.5); WBC 8.8 thou/uL (4.0-11.0)
[2017-05-27 07:01] LABS: ALBUMIN 1.8 g/dL (3.4-5.0); CALCIUM 7.9 mg/dL (8.5-10.1); CREATININE 1.1 mg/dL (0.6-1.3); MAGNESIUM 1.9 mg/dL (1.8-2.4); POTASSIUM 3.9 mmol/L (3.5-5.1); TOTAL BILIRUBIN 0.2 mg/dL (<0.1-1.0); TOTAL PROTEIN 4.8 g/dL (6.4-8.2)
[2017-05-27 09:00] VITALS: BP 123/62
[2017-05-27 15:44] VITALS: BP 137/80
[2017-05-27 20:00] VITALS: BP 134/62
--- NOTE | 2017-05-27 20:00 | NUR ---
RECEIVED REPORT AND ASSUMED CARE OF PT, ASSESSMENT COMPLETED. C/O TOES ON TRISTIAN FEET ITCHING. AREAS CLEANSED WITH WOUND MANAGER AGRICULTURE AND BETADINE APPLIED. PT C/O IMMEDIATE BURNING. REQUESTED ICE TO FEET AND GIVEN. WILL GIVE PAIN MED ALSO. VOIDING WELL PER URINAL. WILL CONT TO MONITOR AND ASSIST NEEDED.
--- NOTE | 2017-05-27 20:44 | NUR ---
I ASSUMED CARE OF THE PATIENT AT 0700. HE IS ALERT AND ORIENTED X4. BED IS IN THE LOW LOCKED POSITION AND CALL LIGHT IS IN REACH. HE IS UP WITH ASSIST X1 TO THE BEDSIDE COMMODE. HE AGREES TO GO TO A FACILITY TO FINISH IV ANTIBIOTIC TREATMENT. HE USES THE URINAL. ISOLATION WAS MAINTAINED. PATIENT IS NOT ALWAYS COMPLIANT WITH NECTAR THICKENED LIQUIDS. HOURLY ROUNDING WAS COMPLETED AND PATIENT NEEDS WERE MET. PAIN IS MANAGED WITH PRN MEDS. WILL CONTINUE TO MONITOR. PATIENT REFUSED A SHOWER. INSERTION SITE FROM STENT PLACEMENT IS FRANCIA AND LOOKS GREAT. HE WAS REMINDED TO CHANGE POSITIONS EVERY TWO HOURS. WILL CONTINUE TO MONITOR.
--- NOTE | 2017-05-27 21:54 | CON ---
[address] [address] CONSULTATION Name: CELESTE STUART Room: [address] IN M.R.#: [id number] Admission: 05/21/17 Attend Phys: Simi Barajas MD Discharge: Date of : 39 Report #: [id number] THIS REPORT FOR: //name// CC: MARIAH physician/PCP Simi Barajas DATE OF SERVICE: 05/23/2017 INFECTIOUS DISEASE CONSULTATION ATTENDING PHYSICIAN: Ross Rogers M.D. REASON FOR EVALUATION: Distal lower extremity wounds, likely ischemic, complicated by infection with culture-proven oxacillin-resistant Staph aureus. HISTORY OF PRESENT ILLNESS: Chart reviewed and the patient examined. This is a 77-year-old I am familiar with, admitted through the Emergency Room on 05/21/2017 for bilateral foot pain. He states he had onset probably a month ago, became quite severe. He was getting around with a motorized scooter due to progressive disability. He reports eating okay, but he appears quite cachectic. It is not clear that he is able to take care of himself. He did undergo aortogram with runoff, left lower extremity, which showed obstructive disease, underwent angioplasty of the left SFA, angioplasty and stent in left common and external iliac arteries, thought there would be acute on chronic issue with underlying stenosis with thrombosis. Culture of a necrotic wound with growth of oxacillin-resistant Staph aureus. He has been started therapy with ceftriaxone and vancomycin. ALLERGIES: TO PENICILLIN, WHICH CAUSES A RASH. CURRENT MEDICATIONS: As above noted, vancomycin, fentanyl, clopidogrel, ondansetron, gabapentin, mirtazapine, melatonin, ceftriaxone, p.r.n. analgesics and antiemetics, finasteride, loratadine, aspirin, pantoprazole, multivitamin, budesonide, tamsulosin, diclofenac, ipratropium and albuterol inhaler. PAST MEDICAL HISTORY: As noted above, has some COPD, has known vasculopathy, coronary artery disease with myocardial infarction a number of years ago, history of skin cancers, peripheral neuropathy. SOCIAL HISTORY: Smokes cigarettes, occasional ethanol. FAMILY HISTORY: Noncontributory. REVIEW OF SYSTEMS: As above. He denies significant pulmonary related complaints at this point nor had abdominal pain, [place] [address] CONSULTATION Name: CELESTE STUART Room: [address] IN [facility]#: [id number] Admission: 05/21/17 Attend Phys: Simi Barajas MD Discharge: Date of : 39 Report #: [id number] PHYSICAL EXAMINATION: GENERAL: He appears chronically ill, undernourished to the point of cachexia. VITAL SIGNS: Temperature 98.9, pulse 122, respirations 20, blood pressure 148/59. SKIN: Warm, dry. NECK: Supple. LUNGS: Scattered coarse breath sounds. HEART: Regular, tachycardic. I do not appreciate a murmur. ABDOMEN: Soft, nontender. EXTREMITIES: Distal lower extremities have ischemic changes. There is a necrotic ulceration involving the dorsal aspect of the right lower extremity. GENITOURINARY: Deferred. RECTAL: Deferred. LABORATORY DATA: Culture from the foot with growth of oxacillin-resistant Staph aureus. Blood cultures sterile thus far. Most recent CBC: White count of 13.5, H and H 6.9 and 23.6, platelets of 325. Electrolytes: Sodium 147, potassium 5.1, chloride 111, bicarbonate is 20, BUN and creatinine 17 and 1.5. Hemoglobin A1c 4.8. MRI of the foot on the right showed subcutaneous fat edema at the site of the ulceration. No evidence of osteomyelitis or subcutaneous abscess. There is a question of some bursitis involving the intermetatarsal site between third and fourth metatarsal heads. Liver functions otherwise unremarkable, albumin of 2.5, total protein 6.1. ASSESSMENT: Distal lower extremity ischemia, complicated by an ulcer, which is necrotic with isolation of methicillin-resistant Staphylococcus aureus. We will continue the empiric therapy for broader spectrum treatment for certainly methicillin-resistant Staphylococcus aureus and see how he responds clinically to the intervention 48 hours prior. He still has significant pain, which I attribute to ischemia at this point, may have an inflammatory component, although is not showing evidence of uncontrolled infection. We will need to optimize his nutritional status. He is certainly at risk for other infectious complications. <ELECTRONICALLY SIGNED> By: Kalen Bonds MD 05/27/17 2154 1327 1830Kalen Bonds MD /nt
--- NOTE | 2017-05-28 06:52 | NUR ---
SLEPT WELL TONIGHT. ASSISTED WITH REPOSITIONING. VOIDING PER URINAL. O2 APPLIED PER RESP. NO CHANGE IN ASSESSMENT. ACHIEVED HS GOALS OF COMFORT AND SAFETY. HOURLY ROUNDING OBSERVED.
[2017-05-28 09:15] VITALS: BP 139/69
[2017-05-28 11:51] VITALS: BP 139/69
[2017-05-28] MEDS ORDERED: HYDROCODON-ACE1 EAC7 PO (12:49)
[2017-05-28] MEDS ORDERED: PLAVIX 75 MG TA75 M1 PO (12:50)
[2017-05-28] MEDS ORDERED: VAN500AD IV (12:55)
--- NOTE | 2017-05-28 13:34 | NUR ---
CM SPOKE TO DR KINNEY AND HE INFORMS THAT THE PATIENT IS READY TO D/C TO [facility] TODAY (05/28/17). CM SPOKE TO THE PATIENT AND HE IS IN AGREEMENT. SOBIA SPOKE TO KAYLEE AT [facility] TO INFORM OF PATIENTS DISCHARGE, AND FAXED PATIENTS D/C ORDERS. KAYLEE INFORMS THAT [facility] WILL PROVIDE TRANSPORTATION AT 1530. SOBIA INFORMED PATIENT AND HE IS IN AGREEMENT. CM INFORMED THE RN OF TIME OF TRANSPORT AND WHERE TO CALL REPORT. CM WILL REMAIN AVAILABLE TO ASSIST AND FOLLOW NEEDED.
--- NOTE | 2017-05-28 15:15 | NUR ---
PATIENT DISCAHRGED TO [facility] VIA WHEELCHAIR VAN AT THIS TIME. [address]. PRN VICODIN GIVEN THIS AM FOR LEG PAIN. WOUND CARE GIVEN ORDERED AND PHOTOS TAKEN. ALL BELONGINGS SENT WITH PATIENT. PICC REMAINS IN PLACE FOR IV ABX.
== END 2017-05-28 15:17 | DRG 515 ==
LOC: M.ERS 00:02 → M.2W 01:23 → M.TBA-ER 01:23 → M.2W 02:10 → M.3W 05-25 16:26
PROVIDERS: Emergency Medicine; Family Medicine; Internal Medicine; Physician Assistant Surgical; Surgery Vascular Surgery; ADMIT Internal Medicine
PROC: 047L3ZZ Dilation of Left Femoral Artery, Percutaneous Approach (ICD-10-PCS; 2017-05-21)
PROC: 047D3ZZ Dilation of Left Common Iliac Artery, Percutaneous Approach (ICD-10-PCS; principal; 2017-05-22)
PROC: 047J3ZZ Dilation of Left External Iliac Artery, Percutaneous Approach (ICD-10-PCS; principal; 2017-05-22)
DX: M71.9 Bursopathy, unspecified (principal); E43 Unspecified severe protein-calorie malnutrition; R65.11 Systemic inflammatory response syndrome (SIRS) of non-infectious origin with acute organ dysfunction; L97.901 Non-pressure chronic ulcer of unspecified part of unspecified lower leg limited to breakdown of skin; L03.116 Cellulitis of left lower limb; N17.9 Acute kidney failure, unspecified; L03.115 Cellulitis of right lower limb; E86.0 Dehydration; J44.9 Chronic obstructive pulmonary disease, unspecified; G62.9 Polyneuropathy, unspecified; E87.5 Hyperkalemia; I25.10 Atherosclerotic heart disease of native coronary artery without angina pectoris; N18.3 Chronic kidney disease, stage 3 (moderate); F32.9 Major depressive disorder, single episode, unspecified; G89.29 Other chronic pain; F17.210 Nicotine dependence, cigarettes, uncomplicated; L97.519 Non-pressure chronic ulcer of other part of right foot with unspecified severity; I73.9 Peripheral vascular disease, unspecified; R91.1 Solitary pulmonary nodule; M77.51 Other enthesopathy of right foot and ankle; I77.1 Stricture of artery; D63.8 Anemia in other chronic diseases classified elsewhere; E88.09 Other disorders of plasma-protein metabolism, not elsewhere classified; I25.2 Old myocardial infarction; Z90.49 Acquired absence of other specified parts of digestive tract; Z88.0 Allergy status to penicillin; Z82.49 Family history of ischemic heart disease and other diseases of the circulatory system; Q27.33 Arteriovenous malformation of digestive system vessel; Z79.82 Long term (current) use of aspirin; Z79.899 Other long term (current) drug therapy

== ENCOUNTER → 2017-06-06 | Outpatient (CLI) | payer MEDICARE, MEDICAID ==
[~2017-06-06] MED LIST changes: +BISACODYL SUPP10 MG RECTAL; +BONIVA150 MG PO; +CALCIUM 600 +1 EAC1 PO; +CYMBALTA30 MG PO; +DOXYCYCLINE 10100 MG PO; +FINASTERIDE5 MG PO; +FLORASTOR250 MG PO; +HYDROCODON-ACE1 EAC7 PO; +IPRAT-ALBUT 0.5-3 ML INH; +KEFLEX500 M1 PO; +LEVALBUTER0.63 MG/3 INH; +LEVAQUIN 500 M500 M1 PO; +PERCOCET 5-3251 EACH PO; +PLAVIX 75 MG TA75 M1 PO; +PREDNISONE 5 MG5 M1 PO; +PULMICORT0.5 MG/2 M INH; +VAN500AD IV; +VANCO 1.251.25 GM/15 IV
== END ==
LOC: M.WC 09:25
DX: I70.235 Atherosclerosis of native arteries of right leg with ulceration of other part of foot (principal); L97.511 Non-pressure chronic ulcer of other part of right foot limited to breakdown of skin; I70.245 Atherosclerosis of native arteries of left leg with ulceration of other part of foot; L97.521 Non-pressure chronic ulcer of other part of left foot limited to breakdown of skin; J44.9 Chronic obstructive pulmonary disease, unspecified; I25.2 Old myocardial infarction; I73.9 Peripheral vascular disease, unspecified; F17.200 Nicotine dependence, unspecified, uncomplicated

== ENCOUNTER 2017-10-15 16:18 | Inpatient (IN) | payer MEDICARE, MEDICAID ==
[~2017-10-15] VITALS: Ht 170.2 cm; Wt 46.8 kg
[~2017-10-15 16:18] MED LIST changes: -BISACODYL SUPP10 MG RECTAL; -BONIVA150 MG PO; -CALCIUM 600 +1 EAC1 PO; -CYMBALTA30 MG PO; -DOXYCYCLINE 10100 MG PO; -FINASTERIDE5 MG PO; -FLORASTOR250 MG PO; -IPRAT-ALBUT 0.5-3 ML INH; -KEFLEX500 M1 PO; -LEVALBUTER0.63 MG/3 INH; -LEVAQUIN 500 M500 M1 PO; -PERCOCET 5-3251 EACH PO; -PREDNISONE 5 MG5 M1 PO; -PULMICORT0.5 MG/2 M INH; -VANCO 1.251.25 GM/15 IV
[2017-10-15 16:21] VITALS: BP 134/71
[2017-10-15] MEDS ORDERED: MAPAP500 M1 PO (16:22)
[2017-10-15] MEDS ORDERED: ACETAMINOPHEN-1 EAC1 PO (16:24)
[2017-10-15] MEDS ORDERED: ALBUTEROL2.5 MG/31 INH (16:26)
[2017-10-15] MEDS ORDERED: PERCOCET PO (16:26)
[2017-10-15 17:18] LABS: ANION GAP 6 mmol/L (7-16); BUN 25 mg/dL (7-18); CALCIUM 8.4 mg/dL (8.5-10.1); CHLORIDE 104 mmol/L (98-107); CO2 28 mmol/L (21-32); CREATININE 1.7 mg/dL (0.6-1.3); GLUCOSE 118 mg/dL (70-99); POTASSIUM 4.9 mmol/L (3.5-5.1); SODIUM 138 mmol/L (136-145)
[2017-10-15 17:28] LABS: ALKALINE PHOSPHATASE 64 U/L (46-116); LIPASE 79 U/L (73-393); NT-PRO BRAIN NAT PEPTIDE 8916 pg/mL (<300); SGOT 9 U/L (15-37); SGPT 11 U/L (30-65); TOTAL BILIRUBIN 0.2 mg/dL (<0.1-1.0); TOTAL PROTEIN 6.9 g/dL (6.4-8.2); TROPONIN-I LEVEL <0.06 ng/mL (<0.06)
[2017-10-15 17:29] LABS: ABSOLUTE BASOPHILS 0.1 thou/uL (0.0-0.2); ABSOLUTE EOSINOPHILS 0.3 thou/uL (0.0-0.7); ABSOLUTE LYMPHOCYTES 3.1 thou/uL (0.8-5.3); ABSOLUTE MONOCYTES 0.7 thou/uL (0.0-1.2); ABSOLUTE NEUTROPHILS 5.2 thou/uL (1.6-8.1); BASOPHILS 1.4 %; EOSINOPHILS 3.3 %; HEMATOCRIT 32.4 % (42.0-52.0); HEMOGLOBIN 9.8 gm/dL (14.0-18.0); LYMPHOCYTES 32.6 %; MCH 23.4 pg (26.0-34.0); MCHC 30.4 g/dL (28.0-37.0); MONOCYTES 7.6 %; NUCLEATED RBCS 0 /100WBC; PLATELET COUNT* 262 thou/uL (150-400); POLYS 55.1 %; RDW-CV 20.4 % (10.5-14.5); WBC 9.4 thou/uL (4.0-11.0)
[2017-10-15 18:01] LABS: PLATELET ESTIMATE ADEQUATE
[2017-10-15 18:02] LABS: ANISOCYTOSIS 2+; OVALOCYTES 1+
[2017-10-15 18:03] LABS: TARGET CELLS Occasional
[2017-10-15 18:04] LABS: HYPOCHROMASIA 1+
[2017-10-15 18:33] LABS: URINE BILIRUBIN NEGATIVE (Negative); URINE BLOOD 1+ (Negative); URINE CLARITY CLEAR; URINE COLOR YELLOW; URINE GLUCOSE-RANDOM NEGATIVE (Negative); URINE KETONES NEGATIVE (Negative); URINE LEUKOCYTES-REFLEX NEGATIVE (Negative); URINE NITRITE-REFLEX NEGATIVE (Negative); URINE PROTEIN NEGATIVE (Negative); URINE SPECIFIC GRAVITY 1.025 (1.005-1.030); URINE UROBILINOGEN 0.2 E.U./dl (0.2-1.0)
[2017-10-15 18:47] LABS: MUCUS None Seen strn/LPF (None Seen); SQUAMOUS 4-10 Moderate /LPF (0-3)
[2017-10-15 18:48] LABS: CASTS None Seen /LPF (None Seen); CRYSTALS None Seen /LPF (None Seen); URINE RBC 0-2 Rare /HPF (0-2); URINE WBC-REFLEX None Seen /HPF (0-5)
[2017-10-15 18:49] LABS: BACTERIA-REFLEX 1-9 Few /HPF (None Seen)
[2017-10-15 20:13] VITALS: BP 157/79
[2017-10-15 20:46] VITALS: BP 144/69
[2017-10-16] VITALS: BP 127/79
[2017-10-16 04:03] VITALS: BP 125/69
[2017-10-16 05:37] LABS: HEMATOCRIT 30.9 % (42.0-52.0); HEMOGLOBIN 9.2 gm/dL (14.0-18.0); MCH 23.4 pg (26.0-34.0); MCHC 29.9 g/dL (28.0-37.0); MCV 78.2 fL (80.0-100.0); MPV 8.2 fl. (7.2-11.1); RBC 3.94 mil/uL (4.50-6.00); RDW-CV 20.5 % (10.5-14.5); WBC 3.6 thou/uL (4.0-11.0)
[2017-10-16 06:00] LABS: ALBUMIN 2.8 g/dL (3.4-5.0); CALCIUM 8.4 mg/dL (8.5-10.1); CREATININE 1.7 mg/dL (0.6-1.3); MAGNESIUM 1.8 mg/dL (1.8-2.4); POTASSIUM 5.7 mmol/L (3.5-5.1); TOTAL BILIRUBIN 0.2 mg/dL (<0.1-1.0); TOTAL PROTEIN 6.1 g/dL (6.4-8.2)
[2017-10-16 08:23] VITALS: BP 137/62
[2017-10-16 11:33] VITALS: BP 129/66
[2017-10-16 15:12] VITALS: BP 129/68
--- NOTE | 2017-10-16 17:25 | EKG ---
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: [place] : 1940 Requested By: Parrish Somers Order Number: [id number] MD: Michael Rebolledo Measurements Intervals [place] Rate: 82 P: 83 NV: 171 QRS: -68 QRSD: 142 T: 117 QT: 414 QTc: 484 Interpretive Statements Sinus rhythm Left bundle-branch block Compared to ECG 05/21/2017 01:04:43 No specific changes noted Electronically Signed On 10-16-2017 17:25:03 CDT by Michael Rebolledo [email or web address] <ELECTRONICALLY SIGNED> By: Michael Rebolledo MD, [facility] 10/16/17 1725 1623 1623 Michael Rebolledo MD, [facility] /EPI
[2017-10-16 20:00] VITALS: BP 137/65
[2017-10-17] VITALS: BP 138/72
[2017-10-17 04:43] VITALS: BP 126/65
[2017-10-17 08:16] VITALS: BP 132/79
[2017-10-17 16:13] VITALS: BP 149/60
[2017-10-17 19:50] VITALS: BP 159/77
[2017-10-18 04:34] LABS: HEMATOCRIT 33.7 % (42.0-52.0); HEMOGLOBIN 9.8 gm/dL (14.0-18.0); MCH 23.1 pg (26.0-34.0); MCHC 29.1 g/dL (28.0-37.0); MCV 79.3 fL (80.0-100.0); MPV 8.2 fl. (7.2-11.1); RBC 4.24 mil/uL (4.50-6.00); RDW-CV 20.7 % (10.5-14.5)
[2017-10-18 04:41] LABS: CALCIUM 8.3 mg/dL (8.5-10.1); CREATININE 1.4 mg/dL (0.6-1.3); MAGNESIUM 1.9 mg/dL (1.8-2.4)
[2017-10-18 04:43] VITALS: BP 145/81
[2017-10-18 04:58] LABS: POTASSIUM 6.2 mmol/L (3.5-5.1); WBC 19.3 thou/uL (4.0-11.0)
[2017-10-18 07:58] VITALS: BP 145/77
[2017-10-18 17:28] VITALS: BP 143/79
[2017-10-18 19:40] VITALS: BP 124/77
[2017-10-19 00:01] VITALS: BP 125/85
[2017-10-19 05:30] LABS: HEMATOCRIT 36.9 % (42.0-52.0); HEMOGLOBIN 10.9 gm/dL (14.0-18.0); MCH 23.4 pg (26.0-34.0); MCHC 29.5 g/dL (28.0-37.0); MPV 8.1 fl. (7.2-11.1); RBC 4.66 mil/uL (4.50-6.00); RDW-CV 21.1 % (10.5-14.5); WBC 16.2 thou/uL (4.0-11.0)
[2017-10-19 05:56] LABS: CALCIUM 8.1 mg/dL (8.5-10.1); CREATININE 1.7 mg/dL (0.6-1.3); MAGNESIUM 1.9 mg/dL (1.8-2.4); POTASSIUM 5.4 mmol/L (3.5-5.1)
[2017-10-19 08:02] VITALS: BP 130/59
[2017-10-19 12:05] VITALS: BP 114/65
[2017-10-19 13:23] LABS: POTASSIUM 4.7 mmol/L (3.5-5.1)
[2017-10-19 16:30] VITALS: BP 118/53
[2017-10-19 20:00] VITALS: BP 107/53
[2017-10-20] VITALS: BP 111/54
[2017-10-20 04:00] VITALS: BP 126/67
[2017-10-20 07:59] VITALS: BP 133/75
[2017-10-20 07:59] LABS: CALCIUM 8.6 mg/dL (8.5-10.1); CREATININE 1.5 mg/dL (0.6-1.3); POTASSIUM 4.8 mmol/L (3.5-5.1)
[2017-10-20 12:13] VITALS: BP 141/71
[2017-10-20 15:35] VITALS: BP 136/65
[2017-10-20 20:00] VITALS: BP 123/70
[2017-10-21] VITALS: BP 135/67
[2017-10-21 04:00] VITALS: BP 147/77
[2017-10-21 08:16] VITALS: BP 143/83
--- NOTE | 2017-10-21 08:28 | CON ---
[address] [address] CONSULTATION Name: CELESTE STUART Room: [address] IN M.R.#: [id number] Admission: 10/15/17 Attend Phys: Simi Barajas MD Discharge: Date of : 39 Report #: [id number] THIS REPORT FOR: //name// CC: FAM unknown Simi Barajas [facility] REASON FOR CONSULTATION: COPD, respiratory failure. HISTORY OF PRESENT ILLNESS: This is a 77-year-old male patient who was admitted to this facility on 10/15/2017 with the chief complaint of shortness of breath. He was brought in to the ER by EMS with shortness of breath that started an hour or so prior to presentation. Apparently, his O2 saturation was more than 90%, but he felt short of breath. He tells me that he had been told he had COPD almost 8 years ago. He continues to smoke half a pack per day. He had been on nebulization treatment for a long time. He told me he tried the nebulization treatments at home. He did not feel providing any benefit. He had wheezes, runny nose, cough occasionally producing clear sputum and 1 time he vomited. He denied any sick contacts. He told me he lives in a long-term facility, and there, he is around sick people, but nothing particular. REVIEW OF SYSTEMS: He denied any fever, chills, chest pain, lower extremity edema, change in bowel habits, bleeding from any orifice. He denied PND, orthopnea. PAST MEDICAL HISTORY: History of COPD, although he is not on oxygen. He has history of coronary artery disease. He has history of neuropathy, and he is a smoker with chronic kidney disease. He has history of GI bleed. He has history of depression and chronic pain. PAST SURGICAL HISTORY: Had appendectomy and ankle fracture surgery in the past. ALLERGIES: HE IS ALLERGIC TO PENICILLIN. FAMILY HISTORY: Reviewed with the patient, noncontributory. SOCIAL HISTORY: He smoked for a long time. He continues to smoke around half pack per day. HOME MEDICATIONS: He is on aspirin, gabapentin, codeine, albuterol nebulization treatments, Symbicort. Singulair, Colace, Spiriva, Remeron. REVIEW OF SYSTEMS: He denied fever, chills, visual changes, headache. He denied abdominal pain, nausea, diarrhea. He denied hematuria. He denied muscle aches. The rest of the review of system was negative. PHYSICAL EXAMINATION: [place] [address] CONSULTATION Name: CELESTE STUART Room: [address]#: [id number] Admission: 10/15/17 Attend Phys: Simi Barajas MD Discharge: Date of : 39 Report #: [id number] VITAL SIGNS: On examination, he is on 2 liters oxygen with saturation more than 90%, blood pressure 126/67, breathing around 19 times a minute, pulse rate is at 97, temperature 36.6. GENERAL: Lying in bed, comfortable, speaks in full sentences, looks his stated age. HEAD: Normocephalic, atraumatic. EYES: Pupils reactive to light. Not pale, no jaundice. ENT: External ear looks healthy and normal. Nasal cavity patent passages. Oral cavity: Mallampati of 2-3, moist mucous membrane. NECK: Supple. No palpable lymph node. No palpable thyroid. Trachea central. CHEST: Diminished air movement bilaterally, prolonged expiratory phase. Faint end expiratory wheezes, some crackles at the bases with rhonchi. HEART: S1, S2, no murmur. ABDOMEN: Benign, soft, lax, nontender, positive bowel sounds. EXTREMITIES: Lower extremity: No edema, no calf tenderness. He is moving forward with his 4 extremities spontaneously. NEUROLOGIC: No focal weakness. Cranial nerves grossly normal. SKIN: Normal for age and race, no rash. LYMPHATICS: No palpable lymph node. LABORATORY DATA: His white blood count upon hospitalization 3.6, increased to 16.2; hemoglobin is 10.9 today, with a platelet of 204. His creatinine is 1.7. His potassium yesterday was 4.7, sodium 136, BUN of 41. His BNP was elevated. He had a V/Q scan that was reported as low probability for PE. His chest x-ray initially did show areas of pneumonitis. IMPRESSION: 1. Acute hypoxemic respiratory failure. 2. Chronic obstructive pulmonary disease exacerbation. 3. Pulmonary infiltrate. 4. Pneumonia. 5. Pulmonary nodules. His chest x-ray was suspicious for possible pulmonary nodules. I will proceed with a CT scan of the chest for further evaluation. It will be without contrast given his chronic renal failure. I agree with antibiotics and steroids, schedule nebulization treatments. Continue to wean his oxygen down as tolerated. Monitor fluid status and avoid fluid overload, can start physical therapy if other physicians agree. I will check Doppler ultrasound of the lower extremities to complement the workup. We will follow along with you. <ELECTRONICALLY SIGNED> By: Junito Mendez MD 10/21/17 0828 0741 [id number] Mendez MD /nt
[2017-10-21 09:17] LABS: HEMATOCRIT 29.3 % (42.0-52.0); MCH 23.5 pg (26.0-34.0); MCHC 30.5 g/dL (28.0-37.0); RBC 3.81 mil/uL (4.50-6.00); RDW-CV 21.1 % (10.5-14.5); WBC 12.4 thou/uL (4.0-11.0)
[2017-10-21 09:30] LABS: ALBUMIN 2.4 g/dL (3.4-5.0); CALCIUM 8.5 mg/dL (8.5-10.1); CREATININE 1.4 mg/dL (0.6-1.3); MAGNESIUM 1.9 mg/dL (1.8-2.4); POTASSIUM 4.4 mmol/L (3.5-5.1); TOTAL BILIRUBIN 0.3 mg/dL (<0.1-1.0); TOTAL PROTEIN 5.8 g/dL (6.4-8.2)
[2017-10-21 14:31] VITALS: BP 148/77
[2017-10-21 16:03] VITALS: BP 143/66
[2017-10-21 20:00] VITALS: BP 131/72
[2017-10-22] VITALS: BP 131/71
[2017-10-22 04:00] VITALS: BP 139/79
[2017-10-22 08:00] VITALS: BP 131/79
[2017-10-22 11:48] VITALS: BP 137/85
[2017-10-22 15:37] VITALS: BP 131/71
[2017-10-22 19:59] VITALS: BP 144/72
[2017-10-23] VITALS: BP 149/68
[2017-10-23 04:00] VITALS: BP 141/78
[2017-10-23 04:25] LABS: ALBUMIN 2.5 g/dL (3.4-5.0); ALKALINE PHOSPHATASE 45 U/L (46-116); ANION GAP < 0 mmol/L (7-16); BUN 45 mg/dL (7-18); CALCIUM 8.1 mg/dL (8.5-10.1); CHLORIDE 103 mmol/L (98-107); CO2 39 mmol/L (21-32); CREATININE 1.5 mg/dL (0.6-1.3); GLUCOSE 131 mg/dL (70-99); MAGNESIUM 2.2 mg/dL (1.8-2.4); POTASSIUM 4.5 mmol/L (3.5-5.1); SGOT 19 U/L (15-37); SGPT 37 U/L (30-65); SODIUM 140 mmol/L (136-145); TOTAL BILIRUBIN 0.4 mg/dL (<0.1-1.0); TOTAL PROTEIN 5.8 g/dL (6.4-8.2)
[2017-10-23 06:16] LABS: HEMATOCRIT 31.5 % (42.0-52.0); HEMOGLOBIN 9.6 gm/dL (14.0-18.0); MCH 23.6 pg (26.0-34.0); MCHC 30.5 g/dL (28.0-37.0); MCV 77.5 fL (80.0-100.0); MPV 8.3 fl. (7.2-11.1); NUCLEATED RBCS 0 /100WBC; PLATELET COUNT* 237 thou/uL (150-400); RBC 4.07 mil/uL (4.50-6.00); RDW-CV 21.3 % (10.5-14.5); WBC 10.4 thou/uL (4.0-11.0)
[2017-10-23 06:50] LABS: ABSOLUTE LYMPHOCYTES 0.9 thou/uL (0.8-5.3); ABSOLUTE MONOCYTES 0.3 thou/uL (0.0-1.2); ABSOLUTE NEUTROPHILS 9.2 thou/uL (1.6-8.1); ANISOCYTOSIS 1+; PLATELET ESTIMATE ADEQUATE; POIKILOCYTOSIS 1+
[2017-10-23 12:11] VITALS: BP 147/75
[2017-10-23 16:00] VITALS: BP 122/71
[2017-10-23 20:20] VITALS: BP 113/48
[2017-10-24] VITALS: BP 133/69
[2017-10-24 04:00] VITALS: BP 138/72
[2017-10-24 08:30] VITALS: BP 133/88
[2017-10-24 11:57] VITALS: BP 146/75
[2017-10-24 15:43] LABS: BE 4.4 mmol/L (-2 to +3); HCO3 29.5 mmol/L (22.0-26.0); PCO2 46.6 mmHg (35.0-45.0); PO2 87.8 mmHg (75.0-100.0)
[2017-10-24 15:55] VITALS: BP 122/60
[2017-10-24 20:00] VITALS: BP 116/65
[2017-10-25] VITALS: BP 116/61
[2017-10-25 04:00] VITALS: BP 133/70
[2017-10-25 04:13] LABS: ABSOLUTE LYMPHOCYTES 0.6 thou/uL (0.8-5.3); ABSOLUTE MONOCYTES 0.6 thou/uL (0.0-1.2); ABSOLUTE NEUTROPHILS 9.2 thou/uL (1.6-8.1); BASOPHILS 0.2 %; MCH 23.9 pg (26.0-34.0); MCHC 30.8 g/dL (28.0-37.0); MCV 77.4 fL (80.0-100.0); MONOCYTES 5.6 %; MPV 7.8 fl. (7.2-11.1); NUCLEATED RBCS 0 /100WBC; PLATELET COUNT* 220 thou/uL (150-400); POLYS 88.2 %; RBC 3.75 mil/uL (4.50-6.00); RDW-CV 20.4 % (10.5-14.5); WBC 10.4 thou/uL (4.0-11.0)
[2017-10-25 04:29] LABS: ALBUMIN 2.2 g/dL (3.4-5.0); ALKALINE PHOSPHATASE 45 U/L (46-116); ANION GAP < 0 mmol/L (7-16); BUN 44 mg/dL (7-18); CALCIUM 7.9 mg/dL (8.5-10.1); CHLORIDE 104 mmol/L (98-107); CO2 38 mmol/L (21-32); CREATININE 1.4 mg/dL (0.6-1.3); GLUCOSE 156 mg/dL (70-99); POTASSIUM 4.6 mmol/L (3.5-5.1); SGOT 12 U/L (15-37); SGPT 26 U/L (30-65); SODIUM 141 mmol/L (136-145); TOTAL BILIRUBIN 0.2 mg/dL (<0.1-1.0); TOTAL PROTEIN 5.3 g/dL (6.4-8.2)
[2017-10-25 08:00] VITALS: BP 121/60
[2017-10-25 12:00] VITALS: BP 142/74
[2017-10-25] MEDS ORDERED: PREDNISONE 10 M10 MG PO (14:44)
[2017-10-25] MEDS ORDERED: LEVAQUIN 500 M500 M2 PO (14:48)
[2017-10-25 15:07] VITALS: BP 142/74
[2017-10-25 16:00] VITALS: BP 100/54
== END 2017-10-25 16:57 | DRG 177 ==
LOC: M.ERS 16:18 → M.2W 18:27 → M.TBA-ER 18:27 → M.2W 20:09
PROVIDERS: Emergency Medicine Emergency Medical Services; Internal Medicine; Internal Medicine Critical Care Medicine; ADMIT Internal Medicine
PROC: 05HY33Z Insertion of Infusion Device into Upper Vein, Percutaneous Approach (ICD-10-PCS; principal; 2017-10-19)
DX: J15.6 Pneumonia due to other Gram-negative bacteria (principal); R65.11 Systemic inflammatory response syndrome (SIRS) of non-infectious origin with acute organ dysfunction; E43 Unspecified severe protein-calorie malnutrition; J96.21 Acute and chronic respiratory failure with hypoxia; N17.9 Acute kidney failure, unspecified; J44.1 Chronic obstructive pulmonary disease with (acute) exacerbation; Z68.1 Body mass index [BMI] 19.9 or less, adult; G62.9 Polyneuropathy, unspecified; N18.3 Chronic kidney disease, stage 3 (moderate); I25.10 Atherosclerotic heart disease of native coronary artery without angina pectoris; R91.8 Other nonspecific abnormal finding of lung field; E87.5 Hyperkalemia; F32.9 Major depressive disorder, single episode, unspecified; F17.210 Nicotine dependence, cigarettes, uncomplicated; I25.2 Old myocardial infarction; Z90.49 Acquired absence of other specified parts of digestive tract; Z85.828 Personal history of other malignant neoplasm of skin; Z87.81 Personal history of (healed) traumatic fracture; Z79.82 Long term (current) use of aspirin; Z79.899 Other long term (current) drug therapy; Z88.0 Allergy status to penicillin; Z82.49 Family history of ischemic heart disease and other diseases of the circulatory system; Z80.8 Family history of malignant neoplasm of other organs or systems

== ENCOUNTER 2017-11-02 09:42 | Inpatient (IN) | payer MEDICARE, MEDICAID ==
[~2017-11-02] VITALS: Ht 162.6 cm; Wt 56.2 kg
--- NOTE | ~2017-11-02 | PROC ---
[facility] [address] [place] [address] PROCEDURE REPORT Name: CELESTE STUART Room: [address] IN M.R.#: [id number] Admission: 11/02/17 Attend Phys: Feng Do, Discharge: 11/06/17 Date of : 38 Report #: [id number] THIS REPORT FOR: //name// For GI report, Please see the Provation report in Perceptive 7 content. By: 0613Medical Records Staff HUGO /VERONICA
[2017-11-02] MEDS ORDERED: SYMBICORT160 MCG/4. INH (09:47)
[2017-11-02 09:56] VITALS: BP 146/65
[2017-11-02] MEDS ORDERED: NICOTINE TRANSD21 M1 (10:00)
[2017-11-02 10:26] LABS: HEMATOCRIT 27.3 % (42.0-52.0); HEMOGLOBIN 8.2 gm/dL (14.0-18.0); MCH 23.9 pg (26.0-34.0); MCHC 29.9 g/dL (28.0-37.0); MCV 79.8 fL (80.0-100.0); MPV 7.6 fl. (7.2-11.1); NUCLEATED RBCS 0 /100WBC; PLATELET COUNT* 261 thou/uL (150-400); RBC 3.42 mil/uL (4.50-6.00); RDW-CV 21.5 % (10.5-14.5)
[2017-11-02 10:36] LABS: APTT 25.6 Seconds (25.0-31.3); PROTIME 9.7 Seconds (9.20-11.50)
[2017-11-02 10:46] LABS: ANION GAP 2 mmol/L (7-16); BUN 39 mg/dL (7-18); CHLORIDE 105 mmol/L (98-107); CO2 32 mmol/L (21-32); CREATININE 1.5 mg/dL (0.6-1.3); GLUCOSE 104 mg/dL (70-99); POTASSIUM 5.1 mmol/L (3.5-5.1); SODIUM 139 mmol/L (136-145)
[2017-11-02 10:54] LABS: ALBUMIN 2.5 g/dL (3.4-5.0); ALKALINE PHOSPHATASE 59 U/L (46-116); NT-PRO BRAIN NAT PEPTIDE 6503 pg/mL (<300); SGOT 15 U/L (15-37); SGPT 21 U/L (30-65); TOTAL BILIRUBIN 0.2 mg/dL (<0.1-1.0); TROPONIN-I LEVEL <0.06 ng/mL (<0.06)
[2017-11-02 11:12] VITALS: BP 117/56
[2017-11-02 11:37] LABS: ABSOLUTE LYMPHOCYTES 1.6 thou/uL (0.8-5.3); ABSOLUTE MONOCYTES 0.3 thou/uL (0.0-1.2); ABSOLUTE NEUTROPHILS 25.1 thou/uL (1.6-8.1); HYPOCHROMASIA 2+; PLATELET ESTIMATE ADEQUATE
[2017-11-02 11:38] LABS: OVALOCYTES 1+; POIKILOCYTOSIS 1+
[2017-11-02 15:23] VITALS: BP 141/67
--- NOTE | 2017-11-02 15:56 | EKG ---
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 : 1940 Requested By: Balta Morales Order Number: [id number] MD: Rickey Gould Measurements Intervals [place] Rate: 111 P: 82 CO: 147 QRS: -60 QRSD: 135 T: 113 QT: 352 QTc: 479 Interpretive Statements Sinus tachycardia Left bundle branch block Compared to ECG 10/15/2017 16:23:08 Sinus rhythm no longer present Electronically Signed On 11-02-2017 15:56:34 CDT by Rickey Gould [email or web address] <ELECTRONICALLY SIGNED> By: Rickey Gould MD, [facility] 11/02/17 1556 0943 0943 Rickey Gould MD, [facility] /EPI
[2017-11-02 20:00] VITALS: BP 127/63
[2017-11-03] VITALS (7 sets, daily range): BP systolic 119–157; BP diastolic 55–85
[2017-11-03 04:53] LABS: HEMATOCRIT 22.8 % (42.0-52.0); MCH 23.8 pg (26.0-34.0); MCHC 29.9 g/dL (28.0-37.0); MCV 79.5 fL (80.0-100.0); MPV 7.8 fl. (7.2-11.1); RBC 2.88 mil/uL (4.50-6.00); RDW-CV 21.6 % (10.5-14.5); WBC 17.4 thou/uL (4.0-11.0)
[2017-11-03 05:07] LABS: HEMOGLOBIN 6.8 gm/dL (14.0-18.0)
[2017-11-03 05:12] LABS: CALCIUM 7.5 mg/dL (8.5-10.1); CREATININE 1.5 mg/dL (0.6-1.3); POTASSIUM 5.1 mmol/L (3.5-5.1); TOTAL BILIRUBIN 0.2 mg/dL (<0.1-1.0); TOTAL PROTEIN 5.3 g/dL (6.4-8.2)
[2017-11-03 18:38] LABS: HEMATOCRIT 30.9 % (42.0-52.0)
[2017-11-03 18:39] LABS: HEMOGLOBIN 9.4 gm/dL (14.0-18.0)
[2017-11-04] VITALS: BP 147/55
[2017-11-04 04:00] VITALS: BP 139/73
[2017-11-04 08:00] VITALS: BP 130/78
[2017-11-04 12:00] VITALS: BP 129/64
[2017-11-04 20:00] VITALS: BP 140/71
[2017-11-05] VITALS: BP 138/72
[2017-11-05 04:00] VITALS: BP 144/69
[2017-11-05 05:23] LABS: HEMATOCRIT 26.7 % (42.0-52.0); HEMOGLOBIN 8.2 gm/dL (14.0-18.0); MCH 25.1 pg (26.0-34.0); MCHC 30.7 g/dL (28.0-37.0); MCV 81.6 fL (80.0-100.0); MPV 7.8 fl. (7.2-11.1); RBC 3.27 mil/uL (4.50-6.00); RDW-CV 20.5 % (10.5-14.5); WBC 16.3 thou/uL (4.0-11.0)
[2017-11-05 05:48] LABS: ALBUMIN 1.9 g/dL (3.4-5.0); CALCIUM 7.2 mg/dL (8.5-10.1); CREATININE 1.5 mg/dL (0.6-1.3); MAGNESIUM 1.8 mg/dL (1.8-2.4); POTASSIUM 5.1 mmol/L (3.5-5.1); TOTAL BILIRUBIN 0.2 mg/dL (<0.1-1.0); TOTAL PROTEIN 4.9 g/dL (6.4-8.2)
[2017-11-05 08:00] VITALS: BP 137/77
[2017-11-05 11:58] VITALS: BP 142/78
[2017-11-05 16:20] VITALS: BP 150/81
[2017-11-05 20:00] VITALS: BP 140/64
[2017-11-06] VITALS: BP 130/67
[2017-11-06 04:00] VITALS: BP 141/70
[2017-11-06 08:05] VITALS: BP 139/78
[2017-11-06 12:31] VITALS: BP 144/72
[2017-11-06] MEDS ORDERED: LEVAQUIN 750 M750 MG PO (13:03)
[2017-11-06] MEDS ORDERED: PREDNISONE 10 M10 MG PO (13:03)
[2017-11-06 14:45] VITALS: BP 144/72
[2017-11-07] MEDS ORDERED: ACETAMINOPHEN-1 EAC1 PO (03:39)
[2017-11-07] MEDS ORDERED: TESSALON PERLE100 MG PO (03:39)
[2017-11-07] MEDS ORDERED: VOLTAREN GEL 1100 G2 TOP (03:46)
[2017-11-07] MEDS ORDERED: ONDANSETRON HCL4 M2 PO (03:47)
[2017-11-07] MEDS ORDERED: PERCOCET PO (03:48)
[2017-11-07] MEDS ORDERED: VENTOLIN HFA 1818 GM INH (03:48)
[2017-11-07] MEDS ORDERED: ALBUTEROL2.5 MG/31 INH (08:23)
--- NOTE | 2017-11-20 13:09 | PATH ---
[address] [address] PATHOLOGY RPT PROCEDURE Name: CELESTE STUART Room: [address] IN .#: [id number] Admission: 11/02/17 Date of : 38 Discharge: 11/06/17 Report #: [id number] Path Case #: [id number] Note [facility] Accession Number: [id number] TESTS RESULT FLAG UNITS REF RANGE LAB Clinician Provided Cytology Information No. of containers..01 Other (Miscellaneous) Source: ESO. BRUSHTIP W/ GMS DIAGNOSIS: ESO. BR[place]HTIP W/ GMS NEGATIVE FOR MALIGNANT CELLS. REACTIVE SQUAMOUS CELLS ARE PRESENT. ABUNDANT FUNGAL ORGANISMS MORPHOLOGICALLY CONSISTENT WITH "SHUN" SPECIES ARE PRESENT. SILVER METHENAMINE STAINED SMEARS ARE NEGATIVE FOR PNEUMOCYSTIS JIROVECI AND POSITIVE FOR FUNGAL ORGANISMS CONSISTENT WITH "SHUN" SPECIES. Signed out by: 02 Hi Breen MD, Pathologist NPI- [id number] Performed by: Jaylyn Saenz, Rn Document Improvement ([facility]) Gross description: 01 10ML, COLORLESS, CLOUDY /LCS FLAG LEGEND: L-Low Normal,H-High Normal,LL-Alert Low,HH-Alert High <-Panic Low,>-Panic High,A-Abnormal,AA-Critical Abnormal Performed at: [address] [place] [address] Edwin Mckenna MD, 02 [facility] [address] [place] [address] Hi Breen MD, Performed at: [address], [place], [place] [id number] MD Edwin Mckenna MD Phone: [phone]
--- NOTE | 2017-12-06 13:22 | CON ---
[address] [address] CONSULTATION Name: CELESTE STUART Room: [address] IN M.R.#: [id number] Admission: 11/02/17 Attend Phys: Feng Do, Discharge: 11/06/17 Date of : 39 Report #: [id number] THIS REPORT FOR: //name// CC: Dr. Mando Do MD REFERRING PHYSICIAN: Dr. Feng Do. HISTORY OF PRESENT ILLNESS: This is a very pleasant 77-year-old male with prior medical history of hypertension, COPD, iron deficiency anemia, gastric AVMs and chronic kidney disease, who was brought into the hospital with worsening dyspnea and cough. Over the course of admission, the patient was diagnosed with COPD exacerbation and has been receiving antibiotics and steroids. The patient reports that he does not have any significant abdominal pain, although he does report some nausea and one episode of emesis. He denies fevers, chills, diarrhea, hematochezia or melena. The GI service has been consulted for a drop in hemoglobin. The patient's hemoglobin on admission was 8.2 and it has decreased to 6.8. PAST MEDICAL HISTORY: As mentioned before, the patient has a history of COPD, hypertension, chronic kidney disease, iron deficiency anemia, and gastric AVMs. PAST SURGICAL HISTORY: The patient had history of appendectomy, skin cancer surgery. SOCIAL HISTORY: The patient denies recreational drug use, but takes alcohol daily and has a 40-udvi-vhws history smoker. REVIEW OF SYSTEMS: A comprehensive 10-point review of systems is performed and is negative except for that mentioned in the history of present illness. PHYSICAL EXAMINATION: VITAL SIGNS: Temperature 36.9, pulse rate 98, respirations 21, blood pressure 125/55. GENERAL: The patient is awake, alert and oriented x 3. HEENT: Mucous membranes are moist. LUNGS: There are bilateral end expiratory wheezes, retraction of intercostal and supraclavicular areas, mild difficulty in breathing. CARDIOVASCULAR: Rate and rhythm regular. S1, S2 present. ABDOMEN: Soft and nontender. No distention, no organomegaly. Bowel sounds present. EXTREMITIES: Warm, well perfused. There is no edema. NEUROLOGIC: There are no focal neurological deficits. SKIN: Diffuse ecchymosis detected on the arm. [place] [address] CONSULTATION Name: CELESTE STUART Room: [address]#: [id number] Admission: 11/02/17 Attend Phys: Feng Do, Discharge: 11/06/17 Date of : 39 Report #: [id number] LABORATORY DATA: Hemoglobin 6.8, hematocrit 22.8, platelets 243, WBC count 17.4. Sodium 140, potassium 5.1, chloride 107, BUN 38, creatinine 1.5. ASSESSMENT AND PLAN: This is a very pleasant 77-year-old male with prior history of chronic obstructive pulmonary disease, presenting with chronic obstructive pulmonary disease exacerbation. During the admission, the patient was noted to have a drop in hemoglobin without any overt evidence of gastrointestinal bleeding. The patient did have an EGD and colonoscopy last year, which demonstrated gastric AVMs and diverticulosis in the colon. 1. Acute blood loss anemia. 2. Iron deficiency anemia. There is no overt evidence of gastrointestinal bleeding at this time. Continue to monitor hemoglobin. We will perform an EGD on Sunday to evaluate the upper GI tract for the presence of AVMs. An outpatient capsule endoscopy can be scheduled to look for small bowel AVMs. I agree with plans that have been outlined by our new associated, Dr. Johnston. We will proceed with upper endoscopy, possible treatment of gastric and small bowel AVMs and make further recommendations thereafter. <ELECTRONICALLY SIGNED> By: Rosendo Johnston MD 12/06/17 1322 1354 [id number] Johnston MD /nt
== END 2017-11-06 17:04 | disposition home health service (06) | DRG 871 ==
LOC: M.ERS 09:42 → M.TBA-ER 10:40 → M.2W 10:40
PROVIDERS: Family Medicine; ADMIT Family Medicine
PROC: 02HV33Z Insertion of Infusion Device into Superior Vena Cava, Percutaneous Approach (ICD-10-PCS; principal; 2017-11-03)
PROC: 30233N1 Transfusion of Nonautologous Red Blood Cells into Peripheral Vein, Percutaneous Approach (ICD-10-PCS; principal; 2017-11-03)
PROC: 0DD58ZX Extraction of Esophagus, Via Natural or Artificial Opening Endoscopic, Diagnostic (ICD-10-PCS; 2017-11-05)
PROC: 3E0G8GC Introduction of Other Therapeutic Substance into Upper GI, Via Natural or Artificial Opening Endoscopic (ICD-10-PCS; 2017-11-05)
PROC: 0D558ZZ Destruction of Esophagus, Via Natural or Artificial Opening Endoscopic (ICD-10-PCS; 2017-11-05)
DX: A41.9 Sepsis, unspecified organism (principal); J18.9 Pneumonia, unspecified organism; J96.01 Acute respiratory failure with hypoxia; K31.811 Angiodysplasia of stomach and duodenum with bleeding; J44.1 Chronic obstructive pulmonary disease with (acute) exacerbation; D62 Acute posthemorrhagic anemia; E44.0 Moderate protein-calorie malnutrition; J44.0 Chronic obstructive pulmonary disease with (acute) lower respiratory infection; I13.0 Hypertensive heart and chronic kidney disease with heart failure and stage 1 through stage 4 chronic kidney disease, or unspecified chronic kidney disease; N18.3 Chronic kidney disease, stage 3 (moderate); G62.9 Polyneuropathy, unspecified; F32.9 Major depressive disorder, single episode, unspecified; K22.9 Disease of esophagus, unspecified; G89.29 Other chronic pain; F17.210 Nicotine dependence, cigarettes, uncomplicated; I50.9 Heart failure, unspecified; D72.829 Elevated white blood cell count, unspecified; N40.0 Benign prostatic hyperplasia without lower urinary tract symptoms; I25.2 Old myocardial infarction; Z90.49 Acquired absence of other specified parts of digestive tract; Z88.0 Allergy status to penicillin; Z82.49 Family history of ischemic heart disease and other diseases of the circulatory system; Z68.21 Body mass index [BMI] 21.0-21.9, adult; Z79.899 Other long term (current) drug therapy

== ENCOUNTER 2017-11-06 20:31 | Inpatient (IN) | payer MEDICARE, MEDICAID ==
[~2017-11-06] VITALS: Ht 170.2 cm; Wt 52.6 kg
[2017-11-06 20:32] VITALS: BP 123/59
[2017-11-06 21:23] LABS: HEMATOCRIT 32.2 % (42.0-52.0); HEMOGLOBIN 9.9 gm/dL (14.0-18.0); MCH 24.7 pg (26.0-34.0); MCHC 30.7 g/dL (28.0-37.0); MCV 80.5 fL (80.0-100.0); MPV 7.5 fl. (7.2-11.1); NUCLEATED RBCS 0 /100WBC; PLATELET COUNT* 259 thou/uL (150-400); RDW-CV 20.8 % (10.5-14.5); WBC 20.6 thou/uL (4.0-11.0)
[2017-11-06 21:28] LABS: ANION GAP 3 mmol/L (7-16); BUN 44 mg/dL (7-18); CALCIUM 7.8 mg/dL (8.5-10.1); CHLORIDE 105 mmol/L (98-107); CO2 29 mmol/L (21-32); CREATININE 1.6 mg/dL (0.6-1.3); GLUCOSE 114 mg/dL (70-99); POTASSIUM 5.5 mmol/L (3.5-5.1); SODIUM 137 mmol/L (136-145)
[2017-11-06 21:39] LABS: ALBUMIN 2.3 g/dL (3.4-5.0); ALKALINE PHOSPHATASE 52 U/L (46-116); NT-PRO BRAIN NAT PEPTIDE > 35000 pg/mL (<300); SGOT 15 U/L (15-37); SGPT 25 U/L (30-65); TOTAL BILIRUBIN 0.2 mg/dL (<0.1-1.0); TOTAL PROTEIN 5.4 g/dL (6.4-8.2)
[2017-11-06 21:58] LABS: ABSOLUTE MONOCYTES 0.8 thou/uL (0.0-1.2); ABSOLUTE NEUTROPHILS 18.7 thou/uL (1.6-8.1); PLATELET ESTIMATE ADEQUATE
[2017-11-06 21:59] LABS: ANISOCYTOSIS 2+
[2017-11-06 22:01] LABS: HYPOCHROMASIA 1+
[2017-11-06 23:14] VITALS: BP 126/73
[2017-11-06 23:25] VITALS: BP 121/81
[2017-11-07] MEDS ORDERED: TESSALON PERLE100 MG PO (03:39)
[2017-11-07] MEDS ORDERED: ACETAMINOPHEN-1 EAC1 PO (03:39)
[2017-11-07] MEDS ORDERED: VOLTAREN GEL 1100 G2 TOP (03:46)
[2017-11-07] MEDS ORDERED: ONDANSETRON HCL4 M2 PO (03:47)
[2017-11-07] MEDS ORDERED: VENTOLIN HFA 1818 GM INH (03:48)
[2017-11-07] MEDS ORDERED: PERCOCET PO (03:48)
[2017-11-07 04:00] VITALS: BP 126/52
[2017-11-07 08:17] VITALS: BP 141/68
[2017-11-07] MEDS ORDERED: ALBUTEROL2.5 MG/31 INH (08:23)
[2017-11-07 12:47] VITALS: BP 133/64
[2017-11-07 16:00] VITALS: BP 123/57
--- NOTE | 2017-11-07 17:57 | EKG ---
[place] [address] ELECTROCARDIOGRAM REPORT Name: CELESTE STUART Room: [address] ADM IN .R.#: [id number] Admission: 11/06/17 Attend Phys: Ursula Jaimes Discharge: Date of : 38 Report #: [id number] THIS REPORT FOR: //name// [facility] ED Test Date: 2017-11-06 Test Time: 20:38:34 Pat Name: CELESTE STUART Department: Room: [facility] Gender: M Manager Power: SUJATA : 1940 Requested By: Edith Montoya Order Number: [id number] MD: Michael Rebolledo Measurements Intervals [place] Rate: 130 P: 63 WA: 112 QRS: -13 QRSD: 130 T: 157 QT: 314 QTc: 462 Interpretive Statements Sinus tachycardia Left bundle branch block Compared to ECG 11/02/2017 09:43:29 No significant changes Electronically Signed On 11-07-2017 17:56:56 CDT by Michael Rebolledo [email or web address] <ELECTRONICALLY SIGNED> By: Michael Rebolledo MD, [facility] 11/07/17 175 37 37 Michael Rebolledo MD, [facility] /EPI
[2017-11-07 20:00] VITALS: BP 146/60
[2017-11-08] VITALS: BP 133/69
[2017-11-08 04:00] VITALS: BP 117/65
[2017-11-08 08:00] VITALS: BP 149/78
[2017-11-08 12:00] VITALS: BP 134/64
[2017-11-08 12:14] VITALS: BP 117/65
[2017-11-08] MEDS ORDERED: KEFLEX500 M1 PO (12:46)
[2017-11-08] MEDS ORDERED: VANCO 1.251.25 GM/15 IV (12:48)
--- NOTE | 2017-11-08 15:56 | EKG ---
[place] [address] ELECTROCARDIOGRAM REPORT Name: SADECELESTE Room: [address] IN .R.#: [id number] Admission: 11/06/17 Attend Phys: Ursula Jaimes Discharge: 11/08/17 Date of : 38 Report #: [id number] THIS REPORT FOR: //name// [facility] Test Date: 2017-11-08 Test Time: 08:01:39 Pat Name: CELESTE STUART Department: Room: [address] Gender: M Director Commercial Sales: : 1940 Requested By: Robert Jj Order Number: [id number] Arian MD: Jh Reynolds Measurements Intervals [place] Rate: 90 P: 83 ME: 159 QRS: -1 QRSD: 138 T: 178 QT: 392 QTc: 480 Interpretive Statements Sinus rhythm Left bundle branch block Compared to ECG 11/06/2017 20:38:34 Sinus tachycardia no longer present Electronically Signed On 11-08-2017 15:56:05 CDT by Jh Reynolds [email or web address] <ELECTRONICALLY SIGNED> By: Jh Reynolds MD, [facility] 11/08/17 1556 0801 0801 Jh Reynolds MD, [facility] /EPI
--- NOTE | 2017-11-13 11:16 | EKG ---
[place] [address] ELECTROCARDIOGRAM REPORT Name: CELESTE STUART Room: [address]#: [id number] Admission: 11/06/17 Attend Phys: Ursula Jaimes Discharge: 11/08/17 Date of : 38 Report #: [id number] THIS REPORT FOR: //name// Sinus rhythm Left bundle branch block Compared to ECG 11/06/2017 20:38:34 Sinus tachycardia no longer present Electronically Signed On 11-08-2017 15:56:05 CDT by Jh Reynolds By: 1556 1114 Jh Reynolds MD, [facility] /JW
== END 2017-11-08 13:15 | DRG 871 ==
LOC: M.ERS 20:31 → M.2W 22:38 → M.TBA-ER 22:38 → M.2W 23:25
PROVIDERS: Personal Emergency Response Attendant; ADMIT Internal Medicine
PROC: 02HV33Z Insertion of Infusion Device into Superior Vena Cava, Percutaneous Approach (ICD-10-PCS; principal; 2017-11-08)
DX: A41.9 Sepsis, unspecified organism (principal); J96.01 Acute respiratory failure with hypoxia; J15.212 Pneumonia due to Methicillin resistant Staphylococcus aureus; J44.1 Chronic obstructive pulmonary disease with (acute) exacerbation; Z68.1 Body mass index [BMI] 19.9 or less, adult; J44.0 Chronic obstructive pulmonary disease with (acute) lower respiratory infection; E44.0 Moderate protein-calorie malnutrition; G62.9 Polyneuropathy, unspecified; N18.3 Chronic kidney disease, stage 3 (moderate); F32.9 Major depressive disorder, single episode, unspecified; G89.29 Other chronic pain; N40.0 Benign prostatic hyperplasia without lower urinary tract symptoms; I50.9 Heart failure, unspecified; Z79.82 Long term (current) use of aspirin; Z79.899 Other long term (current) drug therapy; I25.2 Old myocardial infarction; Z90.49 Acquired absence of other specified parts of digestive tract; Z88.0 Allergy status to penicillin; I25.10 Atherosclerotic heart disease of native coronary artery without angina pectoris

== ENCOUNTER 2017-11-20 13:38 | Inpatient (IN) | payer MEDICARE, MEDICAID ==
[~2017-11-20] VITALS: Ht 170.2 cm; Wt 48.7 kg
[~2017-11-20 13:38] MED LIST changes: +KEFLEX500 M1 PO; +VANCO 1.251.25 GM/15 IV
[2017-11-20 13:50] VITALS: BP 100/61
[2017-11-20] MEDS ORDERED: IPRAT-ALBUT 0.5-3 ML INH (13:54)
[2017-11-20 14:00] LABS: ABSOLUTE BASOPHILS 0.1 thou/uL (0.0-0.2); ABSOLUTE LYMPHOCYTES 0.9 thou/uL (0.8-5.3); ABSOLUTE NEUTROPHILS 42.8 thou/uL (1.6-8.1); BASOPHILS 0.3 %; HEMATOCRIT 23.8 % (42.0-52.0); MCH 23.9 pg (26.0-34.0); MCHC 29.5 g/dL (28.0-37.0); MCV 80.8 fL (80.0-100.0); MONOCYTES 1.2 %; MPV 7.7 fl. (7.2-11.1); NUCLEATED RBCS 0 /100WBC; PLATELET COUNT* 259 thou/uL (150-400); POLYS 96.5 %; RBC 2.95 mil/uL (4.50-6.00); RDW-CV 18.6 % (10.5-14.5)
[2017-11-20] MEDS ORDERED: PERCOCET 5-3251 EACH PO (14:00)
[2017-11-20] MEDS ORDERED: FLORASTOR250 MG PO (14:00)
[2017-11-20 14:01] LABS: ABSOLUTE MONOCYTES 0.5 thou/uL (0.0-1.2)
[2017-11-20] MEDS ORDERED: CALCIUM 600 +1 EAC1 PO (14:01)
[2017-11-20] MEDS ORDERED: BONIVA150 MG PO (14:01)
[2017-11-20] MEDS ORDERED: PROSCAR 5MG TABL5 MG PO (14:01)
[2017-11-20] MEDS ORDERED: PREDNISONE 20 M20 MG PO (14:02)
[2017-11-20 14:03] LABS: WBC 44.4 thou/uL (4.0-11.0)
[2017-11-20 14:13] LABS: PROTIME 10.7 Seconds (9.20-11.50)
[2017-11-20 14:14] LABS: CALCIUM 7.8 mg/dL (8.5-10.1); CREATININE 1.9 mg/dL (0.6-1.3); POTASSIUM 5.1 mmol/L (3.5-5.1)
[2017-11-20 14:28] LABS: ALBUMIN 2.6 g/dL (3.4-5.0); MAGNESIUM 1.9 mg/dL (1.8-2.4); TOTAL BILIRUBIN 0.3 mg/dL (<0.1-1.0); TROPONIN-I LEVEL 0.35 ng/mL (<0.06)
[2017-11-20 15:07] LABS: PLATELET ESTIMATE ADEQUATE
[2017-11-20 15:08] LABS: CLUMPED PLTS RARE; GIANT PLATELETS RARE
[2017-11-20 15:09] LABS: ANISOCYTOSIS 1+; HYPOCHROMASIA 1+
[2017-11-20 15:10] LABS: POLYCHROMASIA Occasional
[2017-11-20 15:38] VITALS: BP 124/62
[2017-11-20 16:00] VITALS: BP 145/53
--- NOTE | 2017-11-20 17:00 | NUR ---
PT. ARRIVED TO ROOM AT APPROX. 1550. PT A/OX4, VSS, MONITOR PLACED TRACING SR BBB. PT. DENIES CURRENT PAIN. PT. DOES HAVE LABORED BREATHING WITH VERY MINIMAL EFFORT. ON 2L NC @ 100%. PT. DENIES RECENT OBVIOUS BLEEDING OR GI ISSUES. GI PHYSICAIN DR. Downs CALLED CONSULT AND SBAR GIVEN, WILL SEE TOMORROW. FULL ASSESSMENT AND ADMISSION PROCESS COMPLETED. WOUND PICS COMPLETED AN PLACED IN CHART. CALL LIGHT IN REACH, WILL CONTINUE TO MONITOR.
--- NOTE | 2017-11-20 17:20 | EKG ---
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
[2017-11-20] MEDS ORDERED: COLACE100 MG PO (18:03)
[2017-11-20] MEDS ORDERED: FINASTERIDE5 MG PO (18:04)
[2017-11-20] MEDS ORDERED: BISACODYL SUPP10 MG RECTAL (18:05)
[2017-11-20 20:00] VITALS: BP 125/47
--- NOTE | 2017-11-20 20:11 | NUR ---
PT. BECAME EXTREMELY WINDED WITH LABORED BREATHING. DR. HERMAN PAGED AND RESPIRATORY CONTACTED. PT. PLACED ON BIPAP, WAS WEARING BIPAP PRN RECENTLY AT [place] BEFORE ADMISSION. PT. WITH COURSE LUNG MCKEON THROUGH OUT, SOUNDS WETTER THAN PREVIOUS ASSESSMENT. WHEN DISCUSSING WITH DR. HERMAN UPON CALL BACK LATER ORDERS RECEIVED FOR 40MG IV LASIX NOW X 1, BIPAP CONTINUE, ABG 1 HOUR, ELECTROLYTE PROTOCOL, BNP AND CBC IN 2 HOURS, 1MG IV ATIVAN Q4 PRN, AND CONTINUATION OF PROTONIX GTT. REPORT GIVEN TO NITISH TO CONTINUE CARE ON DEEP WELL CONTRACTOR. PT. BREATHING SHOWING SOME IMPROVEMENT WITH BIPAP IN PLACE CURRENTLY.
[2017-11-20 21:23] LABS: BE -2.3 mmol/L (-2 to +3); HCO3 22.8 mmol/L (22.0-26.0); PCO2 40.3 mmHg (35.0-45.0)
[2017-11-20 23:19] LABS: HEMATOCRIT 20.2 % (42.0-52.0); MCH 23.9 pg (26.0-34.0); MCHC 29.6 g/dL (28.0-37.0); MCV 80.9 fL (80.0-100.0); MPV 7.8 fl. (7.2-11.1); RBC 2.5 mil/uL (4.50-6.00); RDW-CV 18.5 % (10.5-14.5)
--- NOTE | 2017-11-20 23:19 | NUR ---
PT TAKEN OFF BIPAP PT SATS 98% ON 4L RR 19
[2017-11-20 23:26] LABS: WBC 25.7 thou/uL (4.0-11.0)
[2017-11-21] VITALS (9 sets, daily range): BP systolic 106–147; BP diastolic 51–96
--- NOTE | 2017-11-21 00:12 | NUR ---
DOCTOR NOTIFIED OF HGB LEVEL, NO NEW ORDERS.
[2017-11-21 04:44] LABS: CALCIUM 6.9 mg/dL (8.5-10.1); CREATININE 1.5 mg/dL (0.6-1.3); MAGNESIUM 1.7 mg/dL (1.8-2.4); POTASSIUM 4.3 mmol/L (3.5-5.1)
--- NOTE | 2017-11-21 04:51 | NUR ---
NO ACUTE CHANGES, PATIENT DID NOT COMPLAIN OF SOB. FALL PRECAUTIONS IN PLACE, BED ALARM ON, CALL LIGHT WITH IN REACH, HOURLY ROUNDING OBSERVED. VITALS ARE STABLE. DOCTOR NOTIFIED OF PATIENT REQUEST FOR SLEEPING MED, SEE ORDERS.
--- NOTE | 2017-11-21 04:53 | NUR ---
DOCTOR NOTIFIED OF P02 LEVEL, NO NEW ORDERS.
[2017-11-21 06:56] LABS: MCH 24.1 pg (26.0-34.0); MCHC 29.8 g/dL (28.0-37.0); MCV 80.7 fL (80.0-100.0); MPV 8.1 fl. (7.2-11.1); NUCLEATED RBCS 0 /100WBC; PLATELET COUNT* 164 thou/uL (150-400); RBC 2.22 mil/uL (4.50-6.00); RDW-CV 18.2 % (10.5-14.5); WBC 22.7 thou/uL (4.0-11.0)
[2017-11-21 07:01] LABS: HEMATOCRIT 17.9 % (42.0-52.0); HEMOGLOBIN 5.3 gm/dL (14.0-18.0)
--- NOTE | 2017-11-21 07:47 | NUR ---
CALL RECEIVED FROM DOCTOR HERMAN REGARDING LABS, SEE BEBA.
[2017-11-21 07:59] LABS: ABSOLUTE LYMPHOCYTES 0.5 thou/uL (0.8-5.3); ABSOLUTE MONOCYTES 0.5 thou/uL (0.0-1.2); ABSOLUTE NEUTROPHILS 21.8 thou/uL (1.6-8.1); ATYPICAL LYMPHS 1 %; HYPOCHROMASIA 2+; PLATELET ESTIMATE ADEQUATE
[2017-11-21 08:00] LABS: OVALOCYTES 1+; POIKILOCYTOSIS 1+
[2017-11-21 08:01] LABS: ANISOCYTOSIS 1+; POLYCHROMASIA Occasional
--- NOTE | 2017-11-21 09:00 | NUR ---
ASSUMED PT. CARE AND RECEIVED REPORT AT 0730. PT A/OX4, VSS, MONITOR ON TRACING SR BBB. PT. REPORTS NEED FOR PAIN MED DUE TO LEGS ACHING/CRAMPING. ON 2L NC @ 99%. PT. LUNG FEILDS REMAIN COARSE, BUT WITH GREAT IMPROVEMENT FROM YESTERDAY. PT. REPORTS FEELING BETTER TODAY WELL. FULL ASSESSMENT COMPLETED, REFER TO CHARTING. PT. TO RECEIVE 2 UNITS OF PRBC, AWARE OF PLAN AND CONSENT OBTAINED. PROTONIX GTT REMAINS IN PLACE. PT. NPO FOR GI CONSULT TODAY. CALL LIGHT IN REACH, WILL CONTINUE WITH PLAN OF CARE.
--- NOTE | 2017-11-21 16:02 | NUR ---
Pt is A&O. Known to this CM from previous hospital stays. Pt is was recently discharged to [facility] for skilled, Pt plans to return to [facility] at in. Spoke with Mary, liaison from [facility], they are able to accept Pt back at in. Discussed hospice, Pt stated that he did meet with someone from a hospice company while at [facility], but opted not to sign up for hospice stating "I want to be able to continue coming to the hospital." Normally, Pt resides at [facility] in [place]. Pt has a walker, wc and electric scooter that he uses. Hx of home o2, Pt is currently on o2 while in the hospital. Hx of [facility]. Pt states that he does not feel very well today. CM to remain available through in. Following.
--- NOTE | 2017-11-21 18:35 | NUR ---
PT. STABLE THROUGH OUT SHIFT. RECEIVED 2 UNITS PRBC, TOLERATED WELL. TREATED FOR PAIN IN LEGS X 2 WITH GOOD RELIEF. OXYGEN HAS REMAINED AT 2L NC. HOURLY ROUNDING COMPLETED THROUGH OUT THE DAY FOR PT. SAFETY.
[2017-11-21 21:34] LABS: HEMATOCRIT 29.9 % (42.0-52.0); HEMOGLOBIN 9.2 gm/dL (14.0-18.0); MCH 25.3 pg (26.0-34.0); MCHC 30.7 g/dL (28.0-37.0); MCV 82.3 fL (80.0-100.0); MPV 8.2 fl. (7.2-11.1); RBC 3.64 mil/uL (4.50-6.00); RDW-CV 16.7 % (10.5-14.5); WBC 24.9 thou/uL (4.0-11.0)
--- NOTE | 2017-11-22 03:00 | NUR ---
ASSUMED PT CARE REPORT RECEIVED FROM NURSE. PT IS IN BED LIYINIG AND WATCHING TV. ALERT AWAKE ORIENTED X4. SINUS RYTHM ON ZUMBA INSTRUCTOR.NO COMPLAIN OF PAIN. VITAL SIGNS WITHIN NORMAL LIMIT. Q2TURN PERFORMED. PROTONIC DRIP INFUSING AT 20 PER HOUR. IV LINE PATENT. HGB LAB DRAWNED AND RESULT CAME BACK AT LEVEL 9.2. MEDS ADMIISTERED ORDERED. PT STATES HE WANTS TO KEEP HIS LIGHTS ON AND TV ON TO SLEEP. PT CHOICE WAS GRANTED. FALL PRECAUTION IN PLACE. URINAL CALL LIGHT AT REACH. BED IN LOW POSITION. FALL PRECAUTION IN PLACE. PT IS NOW RESTING IN BED , MADE COMFORTABLE.
[2017-11-22 03:50] VITALS: BP 128/65
[2017-11-22 05:25] LABS: HEMATOCRIT 25.2 % (42.0-52.0); HEMOGLOBIN 7.9 gm/dL (14.0-18.0); MCH 25.3 pg (26.0-34.0); MCHC 31.4 g/dL (28.0-37.0); MCV 80.6 fL (80.0-100.0); MPV 8.2 fl. (7.2-11.1); RBC 3.13 mil/uL (4.50-6.00); RDW-CV 16.6 % (10.5-14.5); WBC 15.5 thou/uL (4.0-11.0)
[2017-11-22 05:31] LABS: ALBUMIN 2.1 g/dL (3.4-5.0); CREATININE 1.5 mg/dL (0.6-1.3); MAGNESIUM 1.8 mg/dL (1.8-2.4); POTASSIUM 4.3 mmol/L (3.5-5.1); TOTAL BILIRUBIN 0.3 mg/dL (<0.1-1.0)
--- NOTE | 2017-11-22 07:15 | NUR ---
ASSUMED CARE OF PT ASSESSED AND DOCUMENTED. PT IS ON CARDIAC MONITER TRACING SR BBB HR 90. PT IS A&O WITH NO C/O PAIN. 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 VSS WNL. PT IS AFEBRILE. PT IS SOA ON EXHERTION. 02 WAS 89 RAISED DROM 2L TO 2.5 L OF O2 AND WAS EFFECTIVE. PT HAS COARSE LUNGS WITH WHEEZING. PT IS NPO FOR SCHEDULED EGD. CONSENT ALREADY SIGNED AND IN CHART. BED IS IN LOW POSITION CALL LIGHT IS IN REACH. WM.
[2017-11-22 08:00] VITALS: BP 130/71
[2017-11-22 11:55] VITALS: BP 148/65
[2017-11-22 15:47] VITALS: BP 138/74
--- NOTE | 2017-11-22 17:20 | NUR ---
PT HAS HAD DIFFICULTY BREATHING THIS SHIFT. HE HAS BEEN ON THE BI-PAP MOST OF THE DAY. PER HIS REQUEST RT AND THIS NURSE HAVE REMOVED BI-PAP OFTEN FOR PT TO EAT. HE GETS SOA QUICKLY. ATIVAN GIVEN X1 AND WAS EFFECTIVE FOR A VERY SHORT TIME. PT HAS BECOME ANXIOUS IF MYSELF OR RT NOT IN HIS ROOM. PER PT REQUEST HE ASKED ME TO CALL HIS DPOA. CALLED AND AWAITING RET CALL. PT HAS HAD NO S OR SX OF ADVERSE REACTION TO ABT VANCO. EDUCATION GIVEN ON DEMAND. HOURLY ROUNDING COMPLETE. REQUESTED INCENTIVE SPIROMETER FROM RT. PT HAS CONT ON TURN AND REPO. THIS NURSE IS FAMILIAR WITH PT. TODAY HIS AGITATION HAS BEEN ONGOING AND WITH STAFF FROM THE KITCHEN TO THE TECHS.
--- NOTE | 2017-11-22 18:07 | NUR ---
SENT YOU CALL MD TO SEE IF ATIVAN CAN BE GIVEN AT SHORTER INTERVALS. PT IS VERY AGITATED.
--- NOTE | 2017-11-22 18:24 | NUR ---
CALLED TREVER RE ATIVAN RAAD PARRA STATED IN NOW.
[2017-11-22 20:00] VITALS: BP 124/78
[2017-11-23] VITALS: BP 126/71; BP 133/72
[2017-11-23 04:00] VITALS: BP 126/71
[2017-11-23 04:13] LABS: HEMATOCRIT 27.4 % (42.0-52.0); HEMOGLOBIN 8.6 gm/dL (14.0-18.0); MCH 25.4 pg (26.0-34.0); MCHC 31.3 g/dL (28.0-37.0); MCV 81.2 fL (80.0-100.0); MPV 7.9 fl. (7.2-11.1); RBC 3.38 mil/uL (4.50-6.00); RDW-CV 16.5 % (10.5-14.5); WBC 19.9 thou/uL (4.0-11.0)
[2017-11-23 04:25] LABS: ALBUMIN 2.1 g/dL (3.4-5.0); CALCIUM 7.4 mg/dL (8.5-10.1); CREATININE 1.4 mg/dL (0.6-1.3); MAGNESIUM 1.9 mg/dL (1.8-2.4); POTASSIUM 4.4 mmol/L (3.5-5.1); TOTAL BILIRUBIN 0.3 mg/dL (<0.1-1.0); TOTAL PROTEIN 5.1 g/dL (6.4-8.2)
--- NOTE | 2017-11-23 04:29 | NUR ---
ASSUMED PATIENT CARE REPORT RECEIVED FORM NURSE. PT IS ALERT AWAKE ORIENTED X 4 , VERY SLEEPY. SINUS RYTHM WITH BBB ON THE SURVEY CHIEF. PT IS ON CONTINUOUS BIPAP AND RESPIRATION IS CONTROLLED BETWEEN 14 TO 20 BREATHS. HE DOES NOT COMPLAIN OF PAIN. UNBLE TO SWALLOW PILLS WITH WATER BECAUSE HE IS LETHARGIC, NOT FOLLOWING COMMANDS WELL. APPLE SAUCE WAS OFFERED WITH CRUSHED PILLS. PT REPOSITIONED DURING THE NIGHT. PERICARE WAS GIVEN AND NEW SHEET PROVIDED.W OUND DRESSING IN RIGHT BUTTOCKS CHANGED. RIGHT PICC LINEIS PATENT. NO BOWEL MOVEMENT. CONTACT ISOLATION MAINTAINED. MADE CONFORTABLE IN BED. WILL CONTINUE TO MONITOR.
--- NOTE | 2017-11-23 05:49 | NUR ---
bipap OFF . ON 3 L NC NOW SATURATION IS 95%
[2017-11-23 09:00] VITALS: BP 138/72
[2017-11-23 11:55] VITALS: BP 121/76
--- NOTE | 2017-11-23 11:55 | NUR ---
WOUND CARE NOTE: ASSESSMENT FOR PRESSURE ULCER TO COCCYX. NO PRESSURE ULCER FOUND. PATIENT DOES HAVE BLANCHABLE REDNESS TO SACROCOCCYGEAL AREA. BELIEVE PATIENT MAY HAVE FRICTION INJURY. APPLIED BARRIER OINTMENT. EDUCATED PATIENT ON KEEPING OFF AREA, COMMUNICATED UNDERSTANDING.
--- NOTE | 2017-11-23 14:10 | NUR ---
Following for d/c planning needs. Spoke with nurse and reviewed chart. Spoke with hospital admissions clerk at [facility]. They are able to accept pt back to SNF if pt d/c over the weekend. Faxed updated clinical to facility. Will remain available to assist as needed.
[2017-11-23 15:31] VITALS: BP 118/73
--- NOTE | 2017-11-23 19:51 | NUR ---
PT. TOLERATING OXYGEN BETTER TODAY, HAS REMAINED ON 2L NC. PT. ANXIOUSNESS HAS IMPROVED AND HE HAS NOT NEEDED ANY PRN'S TODAY FOR ANXIETY. FAIR APPETITE, HAS EATEN SMALL PORTION AT EACH MEAL. WORKED WITH THERAPY THIS MORNING, WAS ABLE TO SIT ON THE EDGE OF THE BED FOR A FEW MINUTES. HOURLY ROUNDING COMPLETED THROUGH OUT THE DAY FOR PT. SAFETY. PT. TURNED Q2 FOR PRESSURE RELIEF AND HEELS ELEVATED.
[2017-11-24] VITALS: BP 133/78
[2017-11-24 03:21] LABS: HEMATOCRIT 26.7 % (42.0-52.0); HEMOGLOBIN 8.4 gm/dL (14.0-18.0); MCH 25.6 pg (26.0-34.0); MCHC 31.3 g/dL (28.0-37.0); MCV 81.6 fL (80.0-100.0); MPV 8.2 fl. (7.2-11.1); RBC 3.28 mil/uL (4.50-6.00); RDW-CV 16.8 % (10.5-14.5)
[2017-11-24 03:52] LABS: ALBUMIN 1.9 g/dL (3.4-5.0); CALCIUM 7.4 mg/dL (8.5-10.1); CREATININE 1.2 mg/dL (0.6-1.3); POTASSIUM 4.7 mmol/L (3.5-5.1); TOTAL BILIRUBIN 0.2 mg/dL (<0.1-1.0); TOTAL PROTEIN 4.9 g/dL (6.4-8.2)
[2017-11-24 04:00] VITALS: BP 128/68
--- NOTE | 2017-11-24 05:30 | NUR ---
ASSUMED PT CARE REPORT RECEIVED FROM NURSE. ON 02 2 L NC AND SATURATIONN 98% ON 2 LV NC,VITAL SIGNS WITHIN NORMAL LIMIT. PT IS LAYING IN BED WHIT COMPLAINT OF PAIN IN LEFT LEG. OXY GIVEN. OTHER NEDS GIVEN WELL LAS ORDERD/ VANCO GIVEN AT 0300. REFUSES BIPAP TONIGHT WNAT TO KEEP 02 NC ON. WICH iS DAY ' OK"STILL ON CONATACT FOR MRSA, CALL LIGHT AT REACH. WILL CONTUNUE MONITOR
[2017-11-24 08:00] VITALS: BP 145/80
--- NOTE | 2017-11-24 08:00 | NUR ---
vss, ASSUMED CARE IN THE AM, ASSESSMENT PERFORMED AND CHARTED, FALL PRECAUTIONS IN PLACE AND CALL LIGHT IN REACH, PT IS ON 2L NC AND IS UP WITH ONE STANDY ASSIST BUT ON BED REST, PT HAS A CONGESTED CAOUGH AND AND STATES PAIN IN HIS BACK AND LEG, PT GOAL IS TO IMPROVE BREATHING, LUNGS ARE DIM. COURSE, TERRY, PT IS TRACING SR ON THE MONITOR.
[2017-11-24 12:56] VITALS: BP 167/80
[2017-11-24 16:33] VITALS: BP 137/72
--- NOTE | 2017-11-24 17:58 | NUR ---
VSS, PT IS TRACING SR.SB ON THE MONITOR, PT IS A&O4 AND BED REST, ON 2L NC, HE IS A&O4 AND HAS NOT MET GOAL PT REMAINS IN BED NOT GETTING UP, HOURLY ROUNDS COMPLETED,
--- NOTE | 2017-11-24 18:00 | NUR ---
PT REFUSES TO BE ACTIVE WITH Q2 TURNS AND I AND THE STAFF HAVE EXPLAINED THAT HIS BUTT IS RED AND IS CAUSING HARM TO HIS SKIN, WILL TRY TO GET PT TO LAY ON SIDE AND OFF LOAD BUTT.
[2017-11-24 20:00] VITALS: BP 133/64
[2017-11-25] VITALS: BP 168/69
[2017-11-25 04:00] VITALS: BP 131/72
[2017-11-25 05:10] LABS: HEMATOCRIT 26.9 % (42.0-52.0); HEMOGLOBIN 8.2 gm/dL (14.0-18.0); MCH 25.1 pg (26.0-34.0); MCHC 30.7 g/dL (28.0-37.0); MPV 8.1 fl. (7.2-11.1); RBC 3.27 mil/uL (4.50-6.00); WBC 13.5 thou/uL (4.0-11.0)
[2017-11-25 05:40] LABS: ALBUMIN 1.9 g/dL (3.4-5.0); ALKALINE PHOSPHATASE 40 U/L (46-116); ANION GAP 1 mmol/L (7-16); BUN 37 mg/dL (7-18); CALCIUM 7.7 mg/dL (8.5-10.1); CHLORIDE 105 mmol/L (98-107); CO2 32 mmol/L (21-32); CREATININE 1.2 mg/dL (0.6-1.3); GLUCOSE 130 mg/dL (70-99); MAGNESIUM 2.1 mg/dL (1.8-2.4); POTASSIUM 5.4 mmol/L (3.5-5.1); SGOT 14 U/L (15-37); SGPT 14 U/L (30-65); SODIUM 138 mmol/L (136-145); TOTAL BILIRUBIN 0.2 mg/dL (<0.1-1.0); TOTAL PROTEIN 4.8 g/dL (6.4-8.2); TROPONIN-I LEVEL <0.06 ng/mL (<0.06)
--- NOTE | 2017-11-25 06:49 | NUR ---
ASSUMED PT CARE AT 1915 REPORT RECEIVED FROM NURSE. PT IS ALERT AWAKE ORIENTED X4 SINUS RYTHM WITH BBB ON THE LAWYER CRIMINAL . ON 2 L NC . PPN INFUSING AT 90CC PER HOUR. VANCO HANGED SCHEDULED. SATURATION IS ABOVE 95%. VITALS SIGNS WITHIN NORMAL LIMIT, NO COMPAINT .PT HAS A DECENT NIGHT AND SLEPT WELL WITH O2 . MADE COMFORTABLE. SCDS IN PLACE. BED ALARM ON. Q2 TURN PERFORMED. WOUND DRESSINGS ARE INTACT. K THIS MORNING WAS 5.4 WILL COMMUNICATE TO DAY SHIFT NURSE,
[2017-11-25 08:00] VITALS: BP 135/79
--- NOTE | 2017-11-25 12:27 | NUR ---
VSS, ASSUMED CARE IN THE AM, ASSESSMENT PERFOMED AND CHARTED, FALL PRECAUTIONS IN PLACE AND CALL LIGHT IN REACH, PT IS ON RA O2 NEED, HE IS WEAk, and needS heLp with turns, PT IS A&O2-3 IS FORGETFUL. PT HAS PAIM IN HIS BACK, HE IS TRACING SR ON THE MONITOR AND IS MAX ASSIST UP. PT GOAL IS TO IMPROVE BREATHING, WILL FOLLOW WITH PLAN OF CARE.
[2017-11-25 13:14] VITALS: BP 131/74
[2017-11-25 17:17] VITALS: BP 135/71
--- NOTE | 2017-11-25 18:20 | NUR ---
VSS, PT IS NOT PROGRESSING TOWARDS GOAL, PT IS WEAK AND DOSENT GET OUT OF BED, HE IS ON RA-1L NC, A&O3 AND FORGETFUL, PT IS TRACING SR ON THE MONITOR, PT TURNS HIS SELF BUT IS ALWAYS ON HIS BACK, HE REFUSES TO TURN ON HIS SIDE AND I HAVE EXPLAINED TO HIM THAT HIS BUTT IS RED, HOURLY ROUNDS COMPLETED,
[2017-11-25 20:00] VITALS: BP 137/81
--- NOTE | 2017-11-25 22:36 | NUR ---
ASSUMED PT CARE AT 1915 REPORT RECEIVED FROM NURSE. PT IS ALERT AWAKE ORIENTED X4 SINUS ARRYTHMIA ON THE MONITOR. HEART RYTHM CHANGED TO AFIB AT AROUND 2230. EKG OBTAINED ANS RESULT SHOWS SINUS TACHYCARDIA. PT IS ASYMPTOMATIC. HR IS MAINTAINED BETWEEN 90 AND 110. Q2 TURN TO BE PERFORMED THROUGHOUT THE NIGHT. WOUND DRESSING TO BE PERFORMED. PT DOES NOT HAVE ANY COMPLAINT. HE RECEIVED HIS SLEEPING PILL. WILL CONTINUE TO MONITOR.
[2017-11-26] VITALS: BP 147/76; BP 184/88
[2017-11-26 04:00] VITALS: BP 136/80
[2017-11-26 05:05] LABS: HEMATOCRIT 28.2 % (42.0-52.0); MCHC 31.9 g/dL (28.0-37.0); MCV 81.4 fL (80.0-100.0); MPV 8.3 fl. (7.2-11.1); RBC 3.46 mil/uL (4.50-6.00); RDW-CV 17.3 % (10.5-14.5); WBC 10.6 thou/uL (4.0-11.0)
[2017-11-26 05:30] LABS: ANION GAP 2 mmol/L (7-16); BUN 38 mg/dL (7-18); CALCIUM 8.4 mg/dL (8.5-10.1); CHLORIDE 103 mmol/L (98-107); CO2 32 mmol/L (21-32); CREATININE 1.3 mg/dL (0.6-1.3); GLUCOSE 127 mg/dL (70-99); MAGNESIUM 2.1 mg/dL (1.8-2.4); POTASSIUM 5.3 mmol/L (3.5-5.1); SODIUM 137 mmol/L (136-145); TROPONIN-I LEVEL <0.06 ng/mL (<0.06)
[2017-11-26 09:00] VITALS: BP 137/66
--- NOTE | 2017-11-26 09:00 | NUR ---
ASSUMED PT. CARE AND RECEIVED REPORT AT 0730. PT A/OX4, VSS, MONITOR ON TRACING SR BBB. PT. SITTING UP EATING BREAKFAST, REPORTS BETTER APPETITE THIS MORNING. ON 2L NC @ 98%, CONTINUES TO HAVE COARSE LUNG MCKEON THROUGH OUT. FULL ASSESSMENT COMPLETED, REFER TO CHARTING. CALL LIGHT IN REACH, WILL CONTNUE WITH PLAN OF CARE.
--- NOTE | 2017-11-26 11:47 | CON ---
[address] [address] CONSULTATION Name: SADECELESTE Renetta Room: [address] IN .R.#: [id number] Admission: 11/20/17 Attend Phys: Simi Barajas MD Discharge: Date of : 38 Report #: [id number] THIS REPORT FOR: //name// CC: Rodney Barajas DATE OF SERVICE: 11/25/2017 REFERRING PHYSICIAN: Simi Barajas MD CHIEF COMPLAINT: COPD, dyspnea. HISTORY OF PRESENT ILLNESS: The patient is a 77-year-old male who quit smoking in 2010. He had been a heavy smoker about 35 plus years. The patient is admitted to the hospital with increased shortness of breath. His chest x-ray has showed persistent infiltrates, we were asked see the patient. Today, he is not experiencing any vomiting. He is complaining of nausea, this has been a chronic condition. He is requesting evaluation for that as well. He has not had any headache, blurred vision, numbness, tingling, abdominal pain. He has not had any chest discomfort. He has a cough, which he describes as a bronchial cough, which is nonproductive. He denied hemoptysis. Shortness of breath is persistent, seems to have gotten worse in the past month. SOCIAL HISTORY: He is a prior smoker. He is a resident of an independent living situation. Here in the past couple of weeks, he has been in and out of the hospital from skilled facility. FAMILY HISTORY: Four children, no contact. Parents . No brothers or sisters. He is single, lives by himself. PAST MEDICAL HISTORY: Chronic obstructive airways disease, coronary artery disease, myocardial infarction 30 years ago. He has history of skin cancer, neuropathy, and chronic kidney disease. REVIEW OF SYSTEMS: System review negative other than what is outlined above. FAMILY HISTORY: Not pertinent for the patient's age. His parents and siblings of natural causes. PHYSICAL EXAMINATION: VITAL SIGNS: Blood pressure 135/79, respiratory rate 14, pulse rate 83, temperature 97.7 degrees. His weight is 111 pounds. GENERAL APPEARANCE: Awake, alert, oriented. HEAD: [place] [address] CONSULTATION Name: CELESTE STUART Room: [address] IN [facility]#: [id number] Admission: 11/20/17 Attend Phys: Simi Barajas MD Discharge: Date of : 38 Report #: [id number] EYES: Pupils are round, equal and reactive. ORAL CAVITY: Moist. Wears dentures, upper and lowers. NECK: No adenopathy or JVD. CHEST: Reveals rhonchi in the posterior lung chavez, bibasilar crackles. CARDIOVASCULAR: Reveals a regular rhythm. ABDOMEN: Soft. EXTREMITIES: Negative for edema. No evidence of clubbing. SKIN: Warm and dry. NEUROLOGIC: Moves all 4 extremities. MEDICAL IMAGING STUDIES: Chest x-ray reveals increased focal opacities in the left mid lung field. A chest x-ray from 11/06/2017 did not reveal any acute abnormalities. LABORATORY DATA: Sodium 138, potassium 5.4, chloride 105, CO2 of 32, BUN of 37, creatinine 1.2. His EGFR is 59. Hemoglobin and hematocrit of 8.2 and 27, white count 13,500. ASSESSMENT: 1. Pulmonary infiltrates. 2. Chronic obstructive airways disease. 3. Chronic nausea. 4. Chronic kidney disease. RECOMMENDATION: Continue with current medical regimen. CT of the chest will be obtained to better evaluate the parenchymal changes in his lung chavez. GI will be consulted regarding his chronic dyspneic condition. <ELECTRONICALLY SIGNED> By: Domenico Chaparro MD 11/26/17 1147 1155 1835Alrobyn Chaparro MD /nt
--- NOTE | 2017-11-26 13:08 | EKG ---
[place] [address] ELECTROCARDIOGRAM REPORT Name: SADECELESTE Room: [address] ADM IN .R.#: [id number] Admission: 11/20/17 Attend Phys: Simi Barajas MD Discharge: Date of : 38 Report #: [id number] THIS REPORT FOR: //name// [facility] Test Date: 2017-11-25 Test Time: 22:25:21 Pat Name: CELESTE STUART Department: Room: [address] Gender: M Roll Off Driver: [facility] : 1940 Requested By: Robert Jj Order Number: [id number] Arian MD: James Elder Measurements Intervals [place] Rate: 91 P: 80 ME: 157 QRS: -58 QRSD: 148 T: 153 QT: 355 QTc: 437 Interpretive Statements Sinus tachycardia Multiple premature complexes, vent & supraven Left bundle branch block Compared to ECG 11/20/2017 14:00:37 pac's and pvc noted Electronically Signed On 11-26-2017 13:08:09 CDT by James Elder [email or web address] <ELECTRONICALLY SIGNED> By: James Elder MD, [facility] 11/26/17 1308 2225 2225 James Elder MD, [facility] /EPI
[2017-11-26 13:09] VITALS: BP 131/61
--- NOTE | 2017-11-26 15:07 | NUR ---
[employer] LEGAL SECRETARY SPOKE TO THE PATIENT TO DISCUSS DISCHARGE PLANNING NEEDS, AND PLANS AT D/C. PATIENT INFORMS THAT HE PLANS TO RETURN TO [facility] AT D/C. CM WILL REMAIN AVAILABLE TO ASSIST AND FOLLOW NEEDED.
[2017-11-26 16:00] VITALS: BP 139/77
--- NOTE | 2017-11-26 18:29 | NUR ---
PT. NOT PROGRESSING TOWARDS GOALS TODAY. APPEARED TO BE IN GOOD SPIRITS AND FEELING BETTER AT BEGINNING OF SHIFT. DISCUSSED GETTING UP IN RECLINER WITH THERAPY, PT. WANTED TO. NOTED DIFFICULTY SWALLOW LARGER PILLS THIS MORNING, PT. DISCUSSED WITH DOCTOR AND CHANGES MADE. APPROX. 1230 PT. BECAME ANXIOUS, MORE SOB. BECAME UPSET WHEN NPO FOR THOROCENTISIS, WHICH MADE HIM MORE ANXIOUS. ATIVAN GIVEN WITH PARTIAL RELIEF. ONCE PT. RETURNED FROM ULTRASOUND, ABLE TO EAT AND STATED HE DID FEEL BETTER. HOURLY ROUNDING COMPLETED THROUGH OUT THE DAY FOR PT. SAFETY.
[2017-11-26 20:00] VITALS: BP 135/87
[2017-11-27] VITALS (7 sets, daily range): BP systolic 114–144; BP diastolic 59–88
--- NOTE | 2017-11-27 03:52 | NUR ---
PT ALERT ORIENTED. ON BEDREST. O2 AT 2 LITERS NC. DENIES PAIN. VOIDS PER URINAL. SLEEPING WELL TONIGHT. OANH PICC. TELEMETRY SHOWS SR BBB. WILL CONTINUE TO MONITOR.
--- NOTE | 2017-11-27 09:30 | NUR ---
ASSUMED PT. CARE AND RECEIVED REPORT AT 0730. PT A/OX4, VSS, MONITOR ON TRACING SRBBB. PT. DENIES CURRENT PAIN. ON 2L NC @ 99%. PT. STATES HE IS FEELING BETTER TODAY, BUT NOT GREAT. PT. UP TO RECLINER WITH ASSIT X1, TOLERATED BETTER THAN SITTING EDGE OF BED A FEW DAYS AGO. APPETITE GOOD THIS MORNING, EATING >50% OF BREAKFAST. FULL ASSESMENT COMPLETED, REFER TO CHARTING. CALL LIGHT IN REACH, WILL CONTINUE WITH PLAN OF CARE.
[2017-11-27 10:14] LABS: BODY FLUID LDH 51 IU/L (()); BODY FLUID PROTEIN 0.9 g/dL (())
--- NOTE | 2017-11-27 19:23 | NUR ---
PT. STABLE THROUGH OUT SHIFT. REMAINED ON 2L NC THROUGH OUT THE DAY. ATTEMPTED TO TITRATE AT ONE POINT BUT PT WENT TO ULTRASOUND FOR THORACENTISIS AND DID NOT WANT TO LEAVE OFF O2 DURING THIS TIME. PT. TOLERATED WELL. APPETITE REMAINS GOOD. UP TO BSC FOR LARGE BM AFTER DINNER. HOURLY ROUNDING COMPLETED THROUGH OUT THE DAY FOR PT. SAFETY.
[2017-11-28] VITALS: BP 121/72
[2017-11-28 04:00] VITALS: BP 141/76
--- NOTE | 2017-11-28 04:52 | NUR ---
RECEIVED PT CARE AT 1915 REPORT RECEIVED FROM NURSE. PT IS ALERT AWAKE ORIENTED X 4. 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 PT PAIN HAS DECREASED TO LEVEL 4 ONE HOUR AFTER ADMISTRATION OF PAIN PILL. ALSO COMPLAINT OF COUGHING. EDUCATION PROVIDED ON THE NEED ON COUGHING AT THIS MOMENT SINCE PT SOUND CONGESTED. COUGH MED GIVEN. VANCO IV GIVEN. SLEEPING PILL PROVIDED. PT ABLE TO REPOSITION SELF WITHOUT ASSISTANCE. ON 1 L NC OXYGENATION REMAINS ABOVE 95%. PT SEEMS TO BE DOING BETTER OVERALL. SNACK PROVIDED. Q2 TURN, USES URINAL, IV LINE PATENT. FALL PRECAUTIIONIN PLACE
[2017-11-28 05:16] LABS: HEMOGLOBIN 9.3 gm/dL (14.0-18.0); MCH 25.1 pg (26.0-34.0); MCHC 30.9 g/dL (28.0-37.0); MCV 81.3 fL (80.0-100.0); MPV 8.4 fl. (7.2-11.1); RBC 3.69 mil/uL (4.50-6.00); WBC 11.6 thou/uL (4.0-11.0)
[2017-11-28 05:30] LABS: CALCIUM 7.7 mg/dL (8.5-10.1); CREATININE 1.3 mg/dL (0.6-1.3); MAGNESIUM 1.8 mg/dL (1.8-2.4); TOTAL BILIRUBIN 0.2 mg/dL (<0.1-1.0); TOTAL PROTEIN 4.7 g/dL (6.4-8.2)
[2017-11-28 09:15] VITALS: BP 130/64
[2017-11-28 11:28] VITALS: BP 131/71
[2017-11-28 16:00] VITALS: BP 134/52
--- NOTE | 2017-11-28 19:00 | NUR ---
ASSUMED PT CARE AT 0730, FULL ASSESMENT DONE CHARTED, PT A/O X4, [place], C/O SOME BACK PAIN, CALLS APPROPRIALTY WHEN PAIN MEDS NEEDED. PT UP WITH OT THIS AFTERNOON, WOULD ONLY STAY IN CHAIR ABOUT AN HOUR, C/O CHEST PAIN WHEN SITTING UP. PTS VSS, SR/BBB ON THE MONITOR. GOOD APITITE, TURNS SELF IN BED. WILL CONTINUE WITH PLAN OF CARE.
[2017-11-29] VITALS: BP 136/72
[2017-11-29 04:00] VITALS: BP 128/76
--- NOTE | 2017-11-29 04:48 | NUR ---
ASSUMED PT CARE AT 19;15 REPORT RECEIVED FROM NURSE. PT IS ALERT AWAKE ORIENTED X 4. SINUS RYTHM BBB ON THE CW OPERATOR. SNACK PROVIDED. FALL PRECAUTION IN PLACE. Q2TURN PERFORMED. IV LINE PATENT. ON 2 LNC .PT DOES NOT HAVE ANY COMPLAINT. SLEPT ALL NIGHT LONG. INTERRUPTED ONLY HYDRATION AND URINATION, TURNS AND MED ADMINISTRATION. WILL CONTINUE TO MONITOR.
--- NOTE | 2017-11-29 07:07 | NUR ---
I have reviewed the documentation by MIMI GIBSON from to 11/28/17 and I concur with it. NALINI VÁZQUEZ
[2017-11-29 09:15] VITALS: BP 130/81
--- NOTE | 2017-11-29 09:19 | NUR ---
Faxed updated clinical info to Jess at [facility], anticipate that Pt will be ready to dc tomorrow. [facility] able to accept Pt back. Following.
[2017-11-29 12:03] VITALS: BP 116/65
[2017-11-29 16:00] VITALS: BP 113/61
--- NOTE | 2017-11-29 16:14 | NUR ---
PATIENT GIVEN PRN PERCOCET FOR CHEST/THROAT PAIN FROM COUGHING THIS AFTERNOON, PATIENT ALSO GIVEN TESSALON ZAYNAB. PATIENT ROUNDED ON AN HOUR AFTER GIVEN AND PATIENT OBSERVED TO BE SLEEPING. RIGHT PICC LINE SL, SCHED ABX GIVEN. IV VANC DC'D AND CHANGED TO PO DOXYCYCLINE. FAIR APPETITE THIS SHIFT. PATIENT DID REFUSE TURNS TIMES, EDUCATION GIVEN. VOIDING PER URINAL, NO BM NOTED THIS SHIFT. DISCHARGE PLANNING.
--- NOTE | 2017-11-29 23:08 | NUR ---
ASSUMED CARE OF PT AT 1900. PT IS ALERT AND ORIENTED. VSS. PERRLA. NO COMPLAINTS OF PAIN. UP WITH 1 ASSIST. PT IS IN SINUS RYTHM ON THE TELEMETRY. PT IS RESTING COMFORTABLY IN BED. RESPIRATIONS ARE EVEN AND NONLABORED. WILL CONTINUE TO MONITOR PT.
[2017-11-30] VITALS: BP 129/73
[2017-11-30 04:00] VITALS: BP 139/74
[2017-11-30 08:00] VITALS: BP 137/74
--- NOTE | 2017-11-30 11:09 | PATH ---
[address] [address] PATHOLOGY RPT PROCEDURE Name: CELESTE STUART Room: [address] IN [facility]#: [id number] Admission: 11/20/17 Date of : 39 Discharge: Report #: [id number] Path Case #: [id number] Note [facility] Accession Number: [id number] TESTS RESULT FLAG UNITS REF RANGE LAB Clinician Provided Cytology Information No. of containers..01 Other (Miscellaneous) Source: RIGHT PLEURAL DIAGNOSIS: 02 RIGHT PLEURAL NEGATIVE FOR MALIGNANT CELLS. MESOTHELIAL CELLS AND FEW INFLAMMATORY CELLS. THIS INTERPRETATION INCLUDES EVALUATION OF A CELL BLOCK. Signed out by: 02 Hi Breen MD, Pathologist NPI- [id number] Performed by: 01 Anette Duran, [employer] Builder ([facility]) Gross description: 01 58ML, YELLOW, CLOUDY /LCS FLAG LEGEND: L-Low Normal,H-High Normal,LL-Alert Low,HH-Alert High <-Panic Low,>-Panic High,A-Abnormal,AA-Critical Abnormal Performed at: [address] [place] [address] Edwin Mckenna MD, [address] [place] [address] [address] [facility], [place] [address] Hi Breen MD, Performed at: [address], [place], [place] [id number] MD Edwin Mckenna MD Phone: [phone]
[2017-11-30] MEDS ORDERED: LEVALBUTER0.63 MG/3 INH (11:50)
[2017-11-30] MEDS ORDERED: PERCOCET 5-3251 EACH PO (11:50)
[2017-11-30] MEDS ORDERED: DOXYCYCLINE 10100 MG PO (11:50)
[2017-11-30] MEDS ORDERED: PREDNISONE 5 MG5 M1 PO (11:50)
[2017-11-30] MEDS ORDERED: PULMICORT0.5 MG/2 M INH (11:50)
[2017-11-30] MEDS ORDERED: LEVAQUIN 500 M500 M1 PO (11:50)
[2017-11-30 11:55] VITALS: BP 135/82
[2017-11-30 12:30] VITALS: BP 135/82
--- NOTE | 2017-11-30 16:02 | NUR ---
RN IN-CHARGE OF PATIENT INFORMS THAT PATIENT WILL REMAIN IN THE HOSPITAL OVERNIGHT AND SHOULD D/C TOMORROW. WHEN PATIENT IS READY TO D/C [facility] WILL NEED TO BE CONATACTED AND ORDERS WILL NEED TO BE FAXED. CM WILL REMAIN AVIALABLE TO ASSIT AND FOLLOW NEEDED. [facility] PHONE: [phone]
[2017-11-30 16:22] LABS: SOURCE PLEURAL
--- NOTE | 2017-11-30 21:30 | NUR ---
ASSUMED CARE OF PT AT 1900. PT IS ALERT AND ORIENTED. VSS. PERRLA. NO COMPLAINTS OF SOA. PT WAS 100% SPO2 ON 2L/M. PT IS MED SURG STATUS. PT IS SLEEPING QUIETLY IN BED. RESPIRATIONS ARE EVEN AND NONLABORED. WILL CONTINUE TO MONITOR PT.
[2017-11-30 23:55] VITALS: BP 136/78
[2017-12-01 08:00] VITALS: BP 134/72
[2017-12-01 11:25] VITALS: BP 135/82
--- NOTE | 2017-12-01 11:37 | NUR ---
Following for d/c planning needs. Received orders to d/c to SNF today. Chart copied. Will fax orders when medications are verified by RN. Spoke with Mary at [facility] and she asked that transportation arrangements be made through [employer]. Called [facility] w/c van and arranged transport for 1300 today. RN aware of d/c plans. Notified family of d/c plans. No other needs identified. [facility] w[facility] van [phone] [facility] [phone]
[2017-12-01 12:00] VITALS: BP 154/82
--- NOTE | 2017-12-01 13:47 | NUR ---
PATIENT IS PROGRESSING TOWARDS GOALS. PLANS TO TRANSFER TO [facility]. REPORT CALLED TO STAFF. PATIENT HAS A RIGHT PICC LINE. HE IS REFUSING TO HAVE IT DISCONTINUED ON DISCHARGE. DR HERMAN PAGED X 2. NO RETURN OF CALL AT THIS TIME. PATIENT'S VS HAVE BEEN STABLE. NO FALLS OR INJURY.
--- NOTE | 2017-12-06 08:09 | PATH ---
[address] [address] PATHOLOGY RPT PROCEDURE Name: CELESTE STUART Room: [address] IN [facility]#: [id number] Admission: 11/20/17 Date of : 39 Discharge: 12/01/17 Report #: [id number] Path Case #: [id number] Note [facility] Accession Number: [id number] TESTS RESULT FLAG UNITS REF RANGE LAB Clinician Provided Cytology Information No. of containers..01 Other (Miscellaneous) Source: 01 L PLEURAL FLUID DIAGNOSIS: 02 L PLEURAL FLUID NEGATIVE FOR MALIGNANT CELLS. REACTIVE MESOTHELIAL CELLS AND ACUTE AND CHRONIC INFLAMMATORY CELLS. THIS INTERPRETATION INCLUDES EVALUATION OF A CELL BLOCK. Signed out by: 02 Hi Breen MD, Pathologist NPI- [id number] Performed by: 01 Anette Duran, Acute Specialist ([facility]) Gross description: 01 46ML, YELLOW, CLEAR /LCS FLAG LEGEND: L-Low Normal,H-High Normal,LL-Alert Low,HH-Alert High <-Panic Low,>-Panic High,A-Abnormal,AA-Critical Abnormal Performed at: [address] [place] [address] Edwin Mckenna MD, [address] [place] [address] [place] [address] iH Breen MD, Specimen Comment: A duplicate report has been generated due to demographic updates. Performed at: [address], [place], [place] [id number] MD Edwin Mckenna MD Phone: [phone]
--- NOTE | 2017-12-06 13:22 | CON ---
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 Over the course of admission, the patient has been diagnosed with COPD exacerbation and has been receiving antibiotics and steroids. The patient has been consulted for evaluation of drop in hemoglobin from his baseline of 9-7. This patient is very well known to our service and had presented with almost the exact same complaints 3 weeks back. At that time, EGD was performed and he was noted to have gastric AVMs, which were cauterized with APC. At the present time, the patient denies any significant abdominal pain, nausea, vomiting, melena, hematemesis or hematochezia. PAST MEDICAL HISTORY: The patient has history of COPD, hypertension, CKD, iron-deficiency anemia and gastric AVMs. PAST SURGICAL HISTORY: The patient had a history of appendectomy and several surgeries for skin cancer. SOCIAL HISTORY: The patient denies recreational drug use, takes alcohol on a daily basis and has a [id number]-dzdk smoking history. REVIEW OF SYSTEMS: A comprehensive 10-point review of systems is negative, except for those mentioned in the HPI. PHYSICAL EXAMINATION: VITAL SIGNS: Temperature 36.6, pulse rate 92, respirations 16, blood pressure 118/53 and pulse ox 100% on 2 liters. GENERAL: The patient is alert, awake and oriented x 3. HEENT: His mucous membranes are moist. There is no congestion. PULMONARY EXAMINATION: Reveals bilateral expiratory wheezes. NECK: Supple. There is no supraclavicular lymphadenopathy. CARDIOVASCULAR EXAMINATION: Rate and rhythm regular, S1, S2 present. ABDOMEN: Soft, distended. No tenderness, no organomegaly. EXTREMITIES: Warm and well perfused. There is no pitting edema. SKIN: [place] [address] CONSULTATION Name: SADECELESTE Renetta Room: [address]#: [id number] Admission: 11/20/17 Attend Phys: Simi Barajas MD Discharge: 12/01/17 Date of : 39 Report #: [id number] LABORATORY DATA: Hemoglobin dropped from a baseline of 9.9 at discharge to 7.0 on admission and is now 5.3. Hematocrit is now currently 17.9 and platelet count 164,000. Sodium 140, potassium 4.3, chloride 107, bicarbonate 27, BUN 34 and creatinine 1.5. INR is 1. ASSESSMENT AND PLAN: A 77-year-old male with prior history of chronic obstructive pulmonary disease, hypertension, hyperlipidemia, chronic kidney disease and gastric arteriovenous malformations, who presented with chronic obstructive pulmonary disease exacerbation and was again found to have an incidentally low hemoglobin. The patient denies any signs of overt GI bleeding at this time. 1. Acute gastrointestinal hemorrhage from gastric arteriovenous malformations. 2. We would like to proceed with an EGD to evaluate the upper GI tract for AVMs and cauterize them as necessary. This is the patient's third endoscopic therapy for AVMs and therefore, I would recommend octreotide therapy for management of chronic GI tract AVMs. The patient is able to get medicines from the [facility], and therefore, I have recommended that he receive 20 mg depot injection of octreotide every month from the [facility]. Following the EGD tomorrow, further recommendations can be made. <ELECTRONICALLY SIGNED> By: Rosendo Johnston MD 12/06/17 1322 1737 [id number] Johnston MD /nt
== END 2017-12-01 15:38 | DRG 871 ==
LOC: M.ERS 13:38 → M.TBA-ER 14:36 → M.2W 14:36
PROVIDERS: Family Medicine; Internal Medicine Pulmonary Disease; ADMIT Internal Medicine
PROC: 30233N1 Transfusion of Nonautologous Red Blood Cells into Peripheral Vein, Percutaneous Approach (ICD-10-PCS; principal; 2017-11-21)
PROC: 0DJ08ZZ Inspection of Upper Intestinal Tract, Via Natural or Artificial Opening Endoscopic (ICD-10-PCS; 2017-11-22)
PROC: 0W9B3ZZ Drainage of Left Pleural Cavity, Percutaneous Approach (ICD-10-PCS; 2017-11-27)
PROC: 0W993ZZ Drainage of Right Pleural Cavity, Percutaneous Approach (ICD-10-PCS; 2017-11-27)
PROC: BB4BZZZ Ultrasonography of Pleura (ICD-10-PCS; 2017-11-27)
DX: A41.9 Sepsis, unspecified organism (principal); J96.01 Acute respiratory failure with hypoxia; K31.811 Angiodysplasia of stomach and duodenum with bleeding; J96.02 Acute respiratory failure with hypercapnia; J18.9 Pneumonia, unspecified organism; J44.1 Chronic obstructive pulmonary disease with (acute) exacerbation; E44.0 Moderate protein-calorie malnutrition; Z68.1 Body mass index [BMI] 19.9 or less, adult; D62 Acute posthemorrhagic anemia; J44.0 Chronic obstructive pulmonary disease with (acute) lower respiratory infection; J90 Pleural effusion, not elsewhere classified; N18.3 Chronic kidney disease, stage 3 (moderate); G62.9 Polyneuropathy, unspecified; R91.8 Other nonspecific abnormal finding of lung field; E87.5 Hyperkalemia; F32.9 Major depressive disorder, single episode, unspecified; G89.29 Other chronic pain; I12.9 Hypertensive chronic kidney disease with stage 1 through stage 4 chronic kidney disease, or unspecified chronic kidney disease; E78.5 Hyperlipidemia, unspecified; I25.10 Atherosclerotic heart disease of native coronary artery without angina pectoris; Z87.891 Personal history of nicotine dependence; I25.2 Old myocardial infarction; Z90.49 Acquired absence of other specified parts of digestive tract; Z85.828 Personal history of other malignant neoplasm of skin; Z79.82 Long term (current) use of aspirin; Z79.899 Other long term (current) drug therapy; Z88.0 Allergy status to penicillin; Z82.49 Family history of ischemic heart disease and other diseases of the circulatory system; Z80.8 Family history of malignant neoplasm of other organs or systems

== ENCOUNTER 2017-12-25 15:45 | Inpatient (IN) | payer MEDICARE, MEDICAID ==
[~2017-12-25] VITALS: Ht 170.2 cm; Wt 44.9 kg
[~2017-12-25 15:45] MED LIST changes: +BISACODYL SUPP10 MG RECTAL; +BONIVA150 MG PO; +CALCIUM 600 +1 EAC1 PO; +DOXYCYCLINE 10100 MG PO; +FINASTERIDE5 MG PO; +FLORASTOR250 MG PO; +IPRAT-ALBUT 0.5-3 ML INH; +LEVALBUTER0.63 MG/3 INH; +LEVAQUIN 500 M500 M1 PO; +PERCOCET 5-3251 EACH PO; +PREDNISONE 5 MG5 M1 PO; +PULMICORT0.5 MG/2 M INH
[2017-12-25] MEDS ORDERED: ASPIR 8181 MG PO (16:03)
[2017-12-25] MEDS ORDERED: ALBUTEROL2.5 MG/31 INH (16:03)
[2017-12-25 16:26] LABS: ABSOLUTE BASOPHILS 0.1 thou/uL (0.0-0.2); ABSOLUTE EOSINOPHILS 0.1 thou/uL (0.0-0.7); ABSOLUTE LYMPHOCYTES 2.4 thou/uL (0.8-5.3); ABSOLUTE MONOCYTES 0.8 thou/uL (0.0-1.2); ABSOLUTE NEUTROPHILS 5.8 thou/uL (1.6-8.1); BASOPHILS 1.3 %; EOSINOPHILS 0.9 %; HEMATOCRIT 33.8 % (42.0-52.0); HEMOGLOBIN 10.3 gm/dL (14.0-18.0); LYMPHOCYTES 25.7 %; MCHC 30.4 g/dL (28.0-37.0); MCV 82.1 fL (80.0-100.0); MONOCYTES 8.7 %; MPV 7.9 fl. (7.2-11.1); NUCLEATED RBCS 0 /100WBC; PLATELET COUNT* 240 thou/uL (150-400); POLYS 63.4 %; RBC 4.12 mil/uL (4.50-6.00); RDW-CV 18.2 % (10.5-14.5); WBC 9.2 thou/uL (4.0-11.0)
[2017-12-25 16:35] LABS: CALCIUM 8.5 mg/dL (8.5-10.1); CREATININE 1.9 mg/dL (0.6-1.3)
[2017-12-25 16:40] LABS: ALBUMIN 2.5 g/dL (3.4-5.0); TOTAL BILIRUBIN 0.4 mg/dL (<0.1-1.0); TOTAL PROTEIN 6.3 g/dL (6.4-8.2)
[2017-12-25 16:42] LABS: POTASSIUM 6.2 mmol/L (3.5-5.1)
[2017-12-25 16:47] LABS: BE -2.8 mmol/L (-2 to +3); HCO3 22.9 mmol/L (22.0-26.0); PCO2 VENOUS 43.7 mmHg (41.0-51.0)
[2017-12-25 19:52] VITALS: BP 127/71
[2017-12-25 20:10] VITALS: BP 127/65
[2017-12-25 23:07] LABS: MAGNESIUM 1.9 mg/dL (1.8-2.4); PHOSPHORUS* 3.8 mg/dL (2.5-4.9)
[2017-12-26] VITALS: BP 106/56
[2017-12-26 04:00] VITALS: BP 110/63
[2017-12-26 05:24] LABS: HEMATOCRIT 28.1 % (42.0-52.0)
[2017-12-26 05:26] LABS: HEMOGLOBIN 8.6 gm/dL (14.0-18.0); MCH 24.8 pg (26.0-34.0); MCHC 30.7 g/dL (28.0-37.0); MCV 80.7 fL (80.0-100.0); MPV 8.1 fl. (7.2-11.1); NUCLEATED RBCS 0 /100WBC; PLATELET COUNT* 255 thou/uL (150-400); RBC 3.48 mil/uL (4.50-6.00); RDW-CV 18.1 % (10.5-14.5); WBC 4.2 thou/uL (4.0-11.0)
[2017-12-26 05:57] LABS: CALCIUM 8.1 mg/dL (8.5-10.1); CREATININE 1.9 mg/dL (0.6-1.3)
[2017-12-26 06:04] LABS: ABSOLUTE LYMPHOCYTES 0.8 thou/uL (0.8-5.3); ABSOLUTE MONOCYTES 0.2 thou/uL (0.0-1.2); ABSOLUTE NEUTROPHILS 3.2 thou/uL (1.6-8.1); PLATELET ESTIMATE ADEQUATE
[2017-12-26 06:05] LABS: ANISOCYTOSIS 1+; HYPOCHROMASIA 1+; OVALOCYTES 1+; POIKILOCYTOSIS 1+
[2017-12-26 09:11] VITALS: BP 128/73
--- NOTE | 2017-12-26 11:02 | EKG ---
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
[2017-12-26 12:00] VITALS: BP 125/67
--- NOTE | 2017-12-26 13:34 | 2DMMODE ---
[place] [address] 2 D/M-MODE ECHOCARDIOGRAM Name: CELESTE STUART Room: [address] IN [facility]#: [id number] Admission: 12/25/17 Attend Phys: Harjeet Montez MD Discharge: Date of : 38 Date of Service: 12/26/17 1334 Report #: [id number] THIS REPORT FOR: //name// APPROVED REPORT Study performed: 12/26/2017 10:27:45 EXAM: Comprehensive 2D, Doppler, and color-flow Echocardiogram Patient Location: In-Patient Room #: [facility] Status: routine BSA: 1.59 HR: 87 bpm BP: 110/63 mmHg Rhythm: NSR Other Information Study Quality: Good Indications Dyspnea 2D Dimensions IVSd: 10.12 (7-11mm) LVOT Diam: 21.05 (18-24mm) LVDd: 50.97 mm PWd: 9.10 (7-11mm) Ascending Ao: 28.99 (22-36mm) LVDs: 46.74 (25-40mm) Aortic Root: 31.87 mm Volumes Left Atrial Volume (Systole) LA ESV Index: 33.80 mL/m2 Aortic Valve AoV Peak Robert.: 1.03 m/s AO Peak Gr.: 4.22 mmHg LVOT Max P.96 mmHg AO Mean Gr.: 2.08 mmHg LVOT Mean P.81 mmHg LVOT Max V: 0.70 m/s AO V2 VTI: 14.85 cm LVOT Mean V: 0.41 m/s ROSALBA (VTI): 2.50 cm2 LVOT V1 VTI: 10.65 cm Mitral Valve E/A Ratio: 2.44 MV E Max Robert.: 0.73 m/[place] [address] 2 D/M-MODE ECHOCARDIOGRAM Name: CELESTE STUART Room: [address] IN ..#: [id number] Admission: 12/25/17 Attend Phys: Harjeet Montez MD Discharge: Date of : 38 Date of Service: 12/26/17 1334 Report #: [id number] TDI E/Lateral E': 10.43 Lateral E' Robert.: 0.07 m/s Pulmonary Valve PV Peak Robert.: 0.75 m/s PV Peak Gr.: 2.22 mmHg Tricuspid Valve RAP Estimate: 5.00 mmHg TR Peak Gr.: 23.66 mmHg RVSP: 29.00 mmHg PA Pressure: 29.00 mmHg Left Ventricle Left ventricle is moderately dilated. There is severe global hypokinesis of the left ventricle with paradoxical septal motion in systole. There is normal left ventricular wall thickness. Left ventricular systolic function is severely decreased. LVEF is 20-25%. Grade IV - fixed restrictive diastolic dysfunction. Right Ventricle The right ventricle is normal size. The right ventricular systolic function is normal. Atria The left atrium size is normal. The right atrium size is normal. Aortic Valve Mild aortic valve sclerosis. No aortic regurgitation is present. There is no aortic valvular stenosis. Mitral Valve Mild mitral annular calcification. Trace mitral regurgitation. No evidence of mitral valve stenosis. Tricuspid Valve The tricuspid valve is normal in structure. Trace tricuspid regurgitation. No pulmonary hypertension. Pulmonic Valve The pulmonary valve is normal in structure. There is no pulmonic valvular regurgitation. Great Vessels The aortic root is normal in size. IVC is normal in size and collapses >50% [place] [address] 2 D/M-MODE ECHOCARDIOGRAM Name: CELSETE STUART Room: [address] IN ..#: [id number] Admission: 12/25/17 Attend Phys: Harjeet Montez MD Discharge: Date of : 38 Date of Service: 12/26/17 1334 Report #: [id number] Pericardium There is no pericardial effusion. <Conclusion> Left ventricle is moderately dilated. There is normal left ventricular wall thickness. Left ventricular systolic function is severely decreased. LVEF is 20-25%. The right ventricle is normal size. The left atrium size is normal. Mild aortic valve sclerosis. No aortic regurgitation is present. There is no aortic stenosis Mild mitral annular calcification. Trace mitral regurgitation. No evidence of mitral valve stenosis. The tricuspid valve is normal in structure. IVC is normal in size and collapses >50% with inspiration. There is no pericardial effusion. There is severe global hypokinesis of the left ventricle with paradoxical septal motion in systole. <ELECTRONICALLY SIGNED> By: Jh Reynolds MD, [facility] 12/26/17 1334 1334 133 Jh Reynolds MD, FACC /INF
[2017-12-26 16:00] VITALS: BP 118/69
[2017-12-26 20:00] VITALS: BP 104/44
[2017-12-27] VITALS: BP 106/50
[2017-12-27 04:00] VITALS: BP 144/81
[2017-12-27 08:15] VITALS: BP 134/80
[2017-12-27 11:34] VITALS: BP 109/84
[2017-12-27] MEDS ORDERED: CYMBALTA30 MG PO (13:52)
[2017-12-27] MEDS ORDERED: REMERON15 MG PO (13:52)
[2017-12-27] MEDS ORDERED: HYDROCODONE-AP1 EAC6 PO (13:58)
[2017-12-27 15:45] VITALS: BP 103/53
== END 2017-12-27 18:40 | DRG 682 ==
LOC: M.ERS 15:45 → M.2W 18:17 → M.TBA-ER 18:17 → M.2W 20:05
PROVIDERS: Personal Emergency Response Attendant; ADMIT Family Medicine
DX: N17.9 Acute kidney failure, unspecified (principal); I50.43 Acute on chronic combined systolic (congestive) and diastolic (congestive) heart failure; J96.21 Acute and chronic respiratory failure with hypoxia; J44.1 Chronic obstructive pulmonary disease with (acute) exacerbation; K92.2 Gastrointestinal hemorrhage, unspecified; E44.0 Moderate protein-calorie malnutrition; Q27.30 Arteriovenous malformation, site unspecified; Z68.1 Body mass index [BMI] 19.9 or less, adult; G62.9 Polyneuropathy, unspecified; N18.3 Chronic kidney disease, stage 3 (moderate); Z66 Do not resuscitate; F32.9 Major depressive disorder, single episode, unspecified; G89.29 Other chronic pain; I25.10 Atherosclerotic heart disease of native coronary artery without angina pectoris; D50.9 Iron deficiency anemia, unspecified; I25.2 Old myocardial infarction; Z90.49 Acquired absence of other specified parts of digestive tract; Z88.0 Allergy status to penicillin